=== PATIENT | female | born 1965 | race Caucasian/White ===

== ENCOUNTER 2018-07-26 08:47 | Emergency (ER) | payer MEDICAID, OTHER ==
[~2018-07-26] VITALS: Ht 170.2 cm; Wt 58.1 kg
[2018-07-26] MEDS ORDERED: ONDANSETRON 4 MG (ZOFRAN) ORAL DISSOLVE TAB ONE (09:22)
--- NOTE | 2018-07-26 09:22 | ED Abdominal Pain ---
General Stated Complaint: ABD PAIN Source of Information: Patient History of Present Illness Date Seen by Provider: Jul 26, 2018 Time Seen by Provider: 09:19 Initial Comments Patient is a 53-year-old female with history of insulin-dependent diabetes, chronic substance abuse and mental illness who presents with lower abdominal pain, cramping with watery diarrhea. Symptoms started 3-4 days ago and have gradually improved. Patient was seen by her PCP yesterday and prescribed antibiotics and nausea medication. Unfortunately, patient was unable to fill these. Patient reports nausea but is able to tolerate fluids and is drinking water. No fever or chills, vomiting or sweats. No chest pain palpitations, shortness of breath. No bloody stools or tarry stools. No history of GI bleed no other acute symptoms or complaints. Timing/Duration: 3-4 Days Severity/Quality: Mild Location: Suprapubic Radiation: No Radiation Activities at Onset: None Allergies and Home Medications Allergies Coded Allergies: tetracycline (Unverified Adverse Reaction, Mild, hives, 07/26/18) Uncoded Allergies: PENICILLIN (Adverse Reaction, Severe, Convulsions, 07/26/18) ERYTHROMYCIN (Adverse Reaction, Mild, hives, 07/26/18) Patient Home Medication List Home Medication List Reviewed: Yes Review of Systems Review of Systems Constitutional: no symptoms reported, see HPI; No dizziness, No fever, No malaise EENTM: No Symptoms Reported, See HPI Respiratory: No Symptoms Reported, See HPI Cardiovascular: No Symptoms Reported, See HPI Gastrointestinal: See HPI; Denies Abdomen Distended; Abdominal Pain; Denies Blood Streaked Stools; Diarrhea, Nausea Genitourinary: No Symptoms Reported Musculoskeletal: no symptoms reported Skin: other (early soft tissue abscess last) Past Lwvaorn-Agfbcz-Dwfcoy Hx Past Med/Social Hx: Reviewed Nursing Past Med/Soc Hx Patient Social History Alcohol Use: Denies Use Physical Exam Vital Signs Capillary Refill : Height/Weight/BMI Height: '" Weight: lbs. oz. 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 Patient does not appear to be in any distress and is drinking water. Patient given nausea medication. Blood sugar checked and is normal. Will obtain UA. Patient previously prescribed antibiotic and nausea medication yesterday. Recommend going previously prescribed per her prescriptions after leaving the emergency department with PCP follow-up. Impression Primary Impression: Nausea alone Additional Impression: Diarrhea Disposition: 01 HOME, SELF-CARE Condition: Improved Departure-Patient Inst. Referrals: ROSALIA MULLEN APRN (PCP) Primary Care Physician FREDDY ALCAZAR MD (Family) Primary Care Physician Patient Instructions: Diarrhea in Adolescents and Adults, Nausea and Vomiting, Adult Add. Discharge Instructions: Please fill antibiotics and nausea medication prescriptions after leaving the emergency department. Take Tylenol and Pepto-Bismol as needed for lower abdominal pain. Drink clear liquids only then gradually increase to bland diet as tolerated. Resume all her home medications. Follow-up with your PCP in 3-5 days for reevaluation if symptoms persist. Return to the ED if new or worsening symptoms. TRACIE LAN DO Jul 26, 2018 09:22
[2018-07-26] MEDS ORDERED: ONDANSETRON 4 MG (ZOFRAN) ORAL DISSOLVE TAB PO STA (09:23)
[2018-07-26] MEDS ORDERED: Klonopin (09:48)
[2018-07-26] MEDS ORDERED: Cogentin (09:48)
[2018-07-26] MEDS ORDERED: REXULTI (09:48)
[2018-07-26] MEDS ORDERED: Levemir (09:48)
[2018-07-26] MEDS ORDERED: Humalog (09:48)
[2018-07-26 10:01] LABS: BILIRUBIN,URINE NEGATIVE (NEGATIVE); CLARITY,URINE CLEAR; COLOR,URINE YELLOW; GLUCOSE, URINE (UA) NEGATIVE (NEGATIVE); KETONES,URINE NEGATIVE (NEGATIVE); NITRITE,URINE NEGATIVE (NEGATIVE); PROTEIN,URINE NEGATIVE (NEGATIVE); UROBILINOGEN,URINE 0.2 MG/DL (NORMAL)
[2018-07-26 10:02] LABS: BACTERIA,URINE NEGATIVE /HPF; LEUKOCYTE ESTERASE ,URINE NEGATIVE (NEGATIVE); RBC,URINE 0-2 /HPF; WBC,URINE 0-2 /HPF
[2018-07-26 10:04] VITALS: BP 112/55
== END 2018-07-26 10:04 | disposition home or self-care (01) ==
LOC: EDUNIT# 08:47 → ER FS 08:49
DX: R11.0 Nausea (principal); R19.7 Diarrhea, unspecified; E11.9 Type 2 diabetes mellitus without complications; Z88.1 Allergy status to other antibiotic agents; Z88.0 Allergy status to penicillin; Z91.041 Radiographic dye allergy status
CPT/HCPCS: 81000; 82962; 99283

== ENCOUNTER 2018-07-27 21:10 | Emergency (ER) | payer MEDICARE, MEDICAID ==
[~2018-07-27] VITALS: Ht 170.2 cm; Wt 58.1 kg
[~2018-07-27 21:10] MED LIST: Cogentin; Humalog; Klonopin; Levemir; REXULTI
--- NOTE | 2018-07-27 21:27 | NUR ---
PT. HAS A RED WARM AREA ON HER RIGHT AC. PT. STATED SHE DOES IV DRUGS BUT DENIED USING DRUGS RECENTLY AND STATED SHE DID NOT USE THAT SITE.
[2018-07-27] MEDS ORDERED: NS IV 1000 ML 1,000 ML IV SCH (21:45)
[2018-07-27 22:10] LABS: BASOPHILS % (AUTO) 0 % (0-10); EOSINOPHILS % (AUTO) 0 % (0-10); HEMATOCRIT 35 % (35-52); HEMOGLOBIN 12.1 G/DL (11.5-16.0); LYMPHOCYTES % (AUTO) 5 % (12-44); MEAN CORPUSCULAR HEMOGLOBIN 31 PG (25-34); MEAN CORPUSCULAR HGB CONC 35 G/DL (32-36); MEAN CORPUSCULAR VOLUME 88 FL (80-99); MEAN PLATELET VOLUME 10.2 FL (7.4-10.4); MONOCYTES % (AUTO) 12 % (0-12); NEUTROPHILS % (AUTO) 82 % (42-75); PLATELET COUNT 234 10^3/uL (130-400); RED CELL DISTRIBUTION WIDTH 11.9 % (10.0-14.5); WHITE BLOOD COUNT 15.6 10^3/uL (4.3-11.0)
[2018-07-27 22:11] LABS: EOSINOPHILS # (AUTO) 0.1 10^3/uL (0.0-0.3); LYMPHOCYTES # (AUTO) 0.8 X 10^3 (1.0-4.0); MONOCYTES # (AUTO) 1.8 X 10^3 (0.0-1.0); NEUTROPHILS # (AUTO) 12.7 X 10^3 (1.8-7.8)
[2018-07-27 22:12] LABS: BILIRUBIN,URINE NEGATIVE (NEGATIVE); CLARITY,URINE CLEAR; COLOR,URINE YELLOW; GLUCOSE, URINE (UA) NEGATIVE (NEGATIVE); KETONES,URINE NEGATIVE (NEGATIVE); LEUKOCYTE ESTERASE ,URINE NEGATIVE (NEGATIVE); NITRITE,URINE NEGATIVE (NEGATIVE); PROTEIN,URINE NEGATIVE (NEGATIVE); UROBILINOGEN,URINE 0.2 MG/DL (NORMAL)
--- NOTE | 2018-07-27 22:12 | ED General ---
General Chief Complaint: Abdominal/GI Problems Stated Complaint: NAUSEA,VOMITING Nursing Triage Note: Pt. reported that she was seen in urgent care 2 days ago and the ER yesterday with the same complaint of diarrhea. She was brought into the ER by EMS and placed in room 6. She has an IV in the left foot with an 18 gauge with NS wide open. Pt. reported she is dehydrated. Nursing Sepsis Screen: No Definite Risk Source of Information: Patient History of Present Illness Date Seen by Provider: Jul 27, 2018 Time Seen by Provider: 22:12 Initial Comments 53-year-old female presenting with complaints of diarrhea and feeling that she was dehydrated. She reports that she had been seen in the urgent care and ER within the last 2 days. She felt that she was getting worse instead of better. She also has swollen red areas on both arms from injecting methamphetamines. She has not been on any antibiotics for this infected areas. She has been having chills at home. She also has been having dry mouth. She states that she is not having any nausea or vomiting and has been drinking water just fine. However with the diarrhea she feels like she is not been able to keep up with the amount of water that she needs to. Allergies and Home Medications Allergies Coded Allergies: tetracycline (Unverified Adverse Reaction, Mild, hives, 07/26/18) Uncoded Allergies: PENICILLIN (Adverse Reaction, Severe, Convulsions, 07/26/18) ERYTHROMYCIN (Adverse Reaction, Mild, hives, 07/26/18) Home Medications Sulfamethoxazole/Trimethoprim 1 Each Tablet, 1 EACH PO BID Prescribed by: JESSENIA TSE on 07/28/18 0007 Patient Home Medication List Home Medication List Reviewed: Yes Review of Systems Review of Systems Constitutional: chills, fever, malaise, weakness EENTM: no symptoms reported Respiratory: no symptoms reported Cardiovascular: no symptoms reported Gastrointestinal: No constipation; diarrhea; No nausea, No vomiting Genitourinary: no symptoms reported Musculoskeletal: no symptoms reported Skin: lesions (redness and swelling to the left wrist and right elbow were she has injected methamphetamines and has an infection.); No rash Past Pxqfegs-Ovohhk-Gatmfh Hx Past Med/Social Hx: Reviewed Nursing Past Med/Soc Hx Patient Social History Drug of Choice: Methamphetamines Type Used: Cigarettes Recent Foreign Travel: No Contact w/Someone Who Travel: No Recent Infectious Disease Expo: No Physical Abuse: No Sexual Abuse: No Mistreated: No Fear: No Physical Exam Vital Signs Vital Signs - First Documented 07/27/18 21:21 Temp 97.2 Pulse 104 Resp 17 B/P (MAP) 118/56 (76) Pulse Ox 96 O2 Delivery Room Air Capillary Refill : Less Than 3 Seconds Height, Weight, BMI Height: 5'7.00" Weight: 128lbs. oz. 58.040123zz; BMI Method:Stated General Appearance: Moderate Distress, Thin HEENT: No Pharyngeal Erythema, No Tonsillar Exudate; Other (dry mucous membranes) Neck: Non Tender, Supple Respiratory: Chest Non Tender, Lungs Clear, Normal Breath Sounds, No Accessory Muscle Use, No Respiratory Distress Cardiovascular: Regular Rate, Rhythm, No Edema, Normal Peripheral Pulses Gastrointestinal: Normal Bowel Sounds, No Organomegaly, No Pulsatile Mass, Non Tender, Soft Extremity: Normal Capillary Refill, Normal Range of Motion, No Calf Tenderness , Inflammation (left wrist and right elbow where she has been duration and infection from injecting methamphetamines) Neurologic/Psychiatric: Alert, Oriented x3, No Motor/Sensory Deficits Skin: Warm/Dry, Erythema (left wrist and right elbow where she has injected methamphetamines and caused a cellulitis) Focused Exam Lactate Level 07/27/18 21:50: Lactic Acid Level 1.28 Lactic Acid Level Progress/Results/Core Measures Suspected Sepsis Recent Fever Within 48 Hours: No Infection Criteria Present: None New/Unexplained Altered Menta: No Sepsis Screen: No Definite Risk SIRS Temperature:97.2 Pulse: 104 Respiratory Rate: 17 Laboratory Tests 07/27/18 21:50: White Blood Count 15.6H Blood Pressure 118 /56 Mean: 76 07/27/18 21:50: Lactic Acid Level 1.28 Laboratory Tests 07/27/18 21:50: Creatinine 0.75, Platelet Count 234, Total Bilirubin 0.3 Results/Orders Lab Results Laboratory Tests Test 07/27/18 21:50 Range/Units White Blood Count 15.6 H 4.3-11.0 10^3/uL Red Blood Count 3.94 L 4.35-5.85 10^6/uL Hemoglobin 12.1 11.5-16.0 G/DL Hematocrit 35 35-52 % Mean Corpuscular Volume 88 80-99 FL Mean Corpuscular Hemoglobin 31 25-34 PG Mean Corpuscular Hemoglobin Concent 35 32-36 G/DL Red Cell Distribution Width 11.9 10.0-14.5 % Platelet Count 234 130-400 10^3/uL Mean Platelet Volume 10.2 7.4-10.4 FL Neutrophils (%) (Auto) 82 H 42-75 % Lymphocytes (%) (Auto) 5 L 12-44 % Monocytes (%) (Auto) 12 0-12 % Eosinophils (%) (Auto) 0 0-10 % Basophils (%) (Auto) 0 0-10 % Neutrophils # (Auto) 12.7 H 1.8-7.8 X 10^3 Lymphocytes # (Auto) 0.8 L 1.0-4.0 X 10^3 Monocytes # (Auto) 1.8 H 0.0-1.0 X 10^3 Eosinophils # (Auto) 0.1 0.0-0.3 10^3/uL Basophils # (Auto) 0.0 0.0-0.1 10^3/uL Neutrophils % (Manual) 47 % Lymphocytes % (Manual) 5 % Monocytes % (Manual) 6 % Eosinophils % (Manual) 0 % Basophils % (Manual) 0 % Metamyelocytes % 1 % Band Neutrophils 41 % Urine Color YELLOW Urine Clarity CLEAR Urine pH 6.0 5-9 Urine Specific [place] <=1.005 1.016-1.022 Urine Protein NEGATIVE NEGATIVE Urine Glucose (UA) NEGATIVE NEGATIVE Urine Ketones NEGATIVE NEGATIVE Urine Nitrite NEGATIVE NEGATIVE Urine Bilirubin NEGATIVE NEGATIVE Urine Urobilinogen 0.2 NORMAL MG/DL Urine Leukocyte Esterase NEGATIVE NEGATIVE Urine RBC (Auto) NEGATIVE NEGATIVE Urine RBC NONE /HPF Urine WBC 0-2 /HPF Urine Squamous Epithelial Cells 2-5 /HPF Urine Crystals NONE /LPF Urine Bacteria TRACE /HPF Urine Casts NONE /LPF Urine Mucus NONE /LPF Urine Culture Indicated NO Sodium Level 134 L 135-145 MMOL/L Potassium Level 3.0 L 3.6-5.0 MMOL/L Chloride Level 100 98-107 MMOL/L Carbon Dioxide Level 16 L 21-32 MMOL/L Anion Gap 18 H 5-14 MMOL/L Blood Urea Nitrogen 17 7-18 MG/DL Creatinine 0.75 0.60-1.30 MG/DL Estimat Glomerular Filtration Rate > 60 BUN/Creatinine Ratio 23 Glucose Level 126 H 70-105 MG/DL Lactic Acid Level 1.28 0.50-2.00 MMOL/L Calcium Level 8.3 L 8.5-10.1 MG/DL Corrected Calcium 9.0 8.5-10.1 MG/DL Total Bilirubin 0.3 0.1-1.0 MG/DL Aspartate Amino Transf (AST/SGOT) 10 5-34 U/L Alanine Aminotransferase (ALT/SGPT) 9 0-55 U/L Alkaline Phosphatase 99 40-136 U/L Total Protein 6.2 L 6.4-8.2 GM/DL Albumin 3.1 L 3.2-4.5 GM/DL Urine Opiates Screen NEGATIVE NEGATIVE Urine Oxycodone Screen NEGATIVE NEGATIVE Urine Methadone Screen NEGATIVE NEGATIVE Urine Propoxyphene Screen NEGATIVE NEGATIVE Urine Barbiturates Screen NEGATIVE NEGATIVE Ur Tricyclic Antidepressants Screen NEGATIVE NEGATIVE Urine Phencyclidine Screen NEGATIVE NEGATIVE Urine Amphetamines Screen POSITIVE H NEGATIVE Urine Methamphetamines Screen POSITIVE H NEGATIVE Urine Benzodiazepines Screen NEGATIVE NEGATIVE Urine Cocaine Screen NEGATIVE NEGATIVE Urine Cannabinoids Screen NEGATIVE NEGATIVE My Orders Orders - JESSENIA TSE MD Cbc With Automated Diff (07/27/18 21:31) Comprehensive Metabolic Panel (07/27/18 21:31) Blood Culture (07/27/18 21:31) Ua Culture If Indicated (07/27/18 21:31) Ed Iv/Invasive Line Start (07/27/18 21:31) Drug Screen Stat (Urine) (07/27/18 21:31) Lactic Acid Analyzer (07/27/18 21:31) Ns Iv 1000 Ml (Sodium Chloride 0.9%) (07/27/18 21:45) Manual Differential (07/27/18 21:50) Sulfamethoxazole/Trimet Ds Tab (Bactrim (07/28/18 00:00) Medications Given in ED Current Medications Medications Dose Ordered Sig/Daniel Route Start Time Stop Time Status Last Admin Dose Admin Trimethoprim/ Sulfamethoxazole 1 ea ONCE ONCE PO 07/28/18 00:00 07/28/18 00:01 DC 07/28/18 00:11 1 EA Vital Signs/I&O 07/27/18 07/28/18 21:21 00:13 Temp 97.2 97.2 Pulse 104 104 Resp 17 17 B/P (MAP) 118/56 (76) 118/56 (76) Pulse Ox 96 96 O2 Delivery Room Air 07/28/18 00:00 Intake Total 500 ml Balance 500 ml Capillary Refill : Less Than 3 Seconds Blood Pressure Mean: 76 Progress Note #1: Progress Note Will check labs and give IV fluids for hydration. Progress Note #2: Progress Note She has an elevated white blood cell count but her lactic acid is normal. Her urine is clear and has a normal specific gravity. Her symptoms are improved with hydration here in the ED. The patient states that she is feeling better and is anxious to go home. We will start her on Bactrim since she does have an antibiotic to help try and treat the any infections from injecting methamphetamines. Encouraged follow-up with the clinic in recheck to ensure that she is improving. Departure Impression Primary Impression: Cellulitis of right arm Additional Impressions: Cellulitis of left arm Diarrhea Qualified Codes: R19.7 - Diarrhea, unspecified Dehydration Methamphetamine addiction Disposition: HOME, SELF-CARE Condition: Stable Departure-Patient Inst. Decision time for Depature: 00:04 Referrals: ROSALIA MULLEN APRN (PCP) Primary Care Physician FREDDY ALCAZAR MD (Family) Primary Care Physician Patient Instructions: Cellulitis (Skin Infection), Adult (DC), Dehydration, Adult (DC), Diarrhea in Adolescents and Adults, Drug Abuse and Drug Addiction ( DC) Add. Discharge Instructions: Take the antibiotics until gone. If your are not seeing improvement in 2-3 days then return or follow up with clinic so they can recheck you. You may need IV antibiotics in the hospital or surgery to perform a procedure on the infection to see if there is an abscess to drain. All discharge instructions reviewed with patient and/or family. Voiced understanding. Scripts Sulfamethoxazole/Trimethoprim (Bactrim Ds Tablet) 1 Each Tablet 1 EACH PO BID for cellulitis for 10 Days, #20 TAB 0 Refills Prov: JESSENIA TSE MD 07/28/18 JESSENIA TSE MD Jul 27, 2018 22:12
[2018-07-27 22:13] LABS: BACTERIA,URINE TRACE /HPF; WBC,URINE 0-2 /HPF
[2018-07-27 22:19] LABS: AMPHETAMINE SCREEN, URINE POSITIVE (NEGATIVE); BARBITURATE SCREEN URINE NEGATIVE (NEGATIVE); BENZODIAZEPINES SCREEN URINE NEGATIVE (NEGATIVE); CANNABINOID SCREEN, URINE NEGATIVE (NEGATIVE); COCAINE SCREEN URINE NEGATIVE (NEGATIVE); METHADONE STAT NEGATIVE (NEGATIVE); METHAMPHETAMINE SCREEN URINE S POSITIVE (NEGATIVE); OPIATE SCREEN URINE NEGATIVE (NEGATIVE); OXYCODONE STAT NEGATIVE (NEGATIVE); PROPOXYPHENE STAT NEGATIVE (NEGATIVE); TRICYCLIC ANTIDEPRESSANTS SCRE NEGATIVE (NEGATIVE)
--- NOTE | 2018-07-27 22:19 | NUR ---
doctor Matthew in to see the patient.
--- NOTE | 2018-07-27 22:25 | NUR ---
pt. has been up to the bathroom to void 2 times since she arrived.
--- NOTE | 2018-07-27 22:27 | NUR ---
pt. refused to have the 2nd blood culture done.
[2018-07-27 22:29] LABS: ALKALINE PHOSPHATASE 99 U/L (40-136); BILIRUBIN,TOTAL 0.3 MG/DL (0.1-1.0); BUN/CREATININE RATIO 23; CALCIUM 8.3 MG/DL (8.5-10.1); CARBON DIOXIDE 16 MMOL/L (21-32); CHLORIDE 100 MMOL/L (98-107); CREATININE SERUM 0.75 MG/DL (0.60-1.30); GFR ESTIMATED > 60; GLUCOSE 126 MG/DL (70-105); SODIUM 134 MMOL/L (135-145)
[2018-07-27 22:30] LABS: ALANINE AMINOTRANSFERASE 9 U/L (0-55); ALBUMIN 3.1 GM/DL (3.2-4.5); TOTAL PROTEIN 6.2 GM/DL (6.4-8.2)
[2018-07-27 22:37] LABS: BAND NEUTROPHILS 41 %; BASOPHILS % (MANUAL) 0 %; EOSINOPHILS % (MANUAL) 0 %; LYMPHOCYTES % (MANUAL) 5 %; METAMYELOCYTES % 1 %; MONOCYTES % (MANUAL) 6 %; NEUTROPHILS % (MANUAL) 47 %
[2018-07-28] MEDS ORDERED: TRIM/SULFAMETH 160/800 (SEPTRA DS) TAB PO ONE
[2018-07-28] MEDS ORDERED: SULF1TAB35 PO (00:07)
[2018-07-28 00:13] VITALS: BP 118/56
== END 2018-07-28 00:11 | disposition home or self-care (01) ==
LOC: EDUNIT# 21:10 → ER FS 21:11
DX: L03.113 Cellulitis of right upper limb (principal); L03.114 Cellulitis of left upper limb; R19.7 Diarrhea, unspecified; E86.0 Dehydration; F15.10 Other stimulant abuse, uncomplicated; Z88.1 Allergy status to other antibiotic agents; Z88.0 Allergy status to penicillin; Z91.041 Radiographic dye allergy status
CPT/HCPCS: 36415; 80053; 80306; 81000; 83605; 85007; 85027; 87040

== ENCOUNTER 2019-04-28 09:16 | Emergency (ER) | payer MEDICARE, MEDICAID ==
[~2019-04-28] VITALS: Ht 167.7 cm; Wt 59.9 kg
[~2019-04-28 09:16] MED LIST changes: +SULF1TAB35 PO
--- NOTE | 2019-04-28 09:30 | ED Dyspnea ---
General Stated Complaint: SOB Source of Information: Patient, EMS Exam Limitations: No Limitations History of Present Illness Date Seen by Provider: Apr 28, 2019 Time Seen by Provider: 09:27 Initial Comments Shortness of air for a few days, denies CP or significant cough. Denies fever or chills. Overall, states she feels tired. Admits to smoking cigarettes and Meth. Hx of COPD, "out of her inhalers" Severity: Mild Activities at Onset: None Allergies and Home Medications Allergies Coded Allergies: tetracycline (Unverified Adverse Reaction, Mild, hives, 07/26/18) Uncoded Allergies: PENICILLIN (Adverse Reaction, Severe, Convulsions, 07/26/18) ERYTHROMYCIN (Adverse Reaction, Mild, hives, 07/26/18) Home Medications Albuterol Sulfate 1 Puff Puff, 2 PUFF IH Q4H PRN for cough 1 PUFF = 90 MCG Prescribed by: DAMIR MOSS on 04/28/19 1014 Prednisone 50 Mg Tab, 50 MG PO DAILY Prescribed by: DAMIR MOSS on 04/28/19 1014 Patient Home Medication List Home Medication List Reviewed: Yes Review of Systems Review of Systems Constitutional: see HPI; No chills, No diaphoresis, No dizziness, No fever; malaise, weakness EENTM: No ear discharge, No ear pain, No hoarseness, No nose congestion Respiratory: see HPI; No cough; dyspnea on exertion, short of breath; No wheezing Cardiovascular: see HPI; No chest pain, No edema, No palpitations Gastrointestinal: No abdominal pain; loss of appetite; No nausea, No vomiting Musculoskeletal: see HPI; No back pain, No neck pain Past Vokhewn-Uztolv-Qnxebn Hx Past Med/Social Hx: Reviewed Nursing Past Med/Soc Hx Patient Social History Recreational Drug Use: Yes (meth) Drug of Choice: Methamphetamines Smoking Status: Current Everyday Smoker Type Used: Cigarettes Recent Foreign Travel: Yes Physical Exam Vital Signs Vital Signs - First Documented 04/28/19 09:23 Temp 36.1 Pulse 69 Resp 16 B/P (MAP) 125/54 (77) Pulse Ox 100 O2 Delivery Room Air Capillary Refill : Height, Weight, BMI Height: 5'7.00" Weight: 128lbs. oz. 58.337640ql; BMI Method:Stated General Appearance: No Apparent Distress, WD/WN HEENT: PERRL/EOMI, TMs Normal, Normal ENT Inspection, Pharynx Normal Neck: Full Range of Motion, Normal Inspection, Non Tender, Supple Respiratory: Chest Non Tender, Lungs Clear, Normal Breath Sounds, No Accessory Muscle Use, No Respiratory Distress Cardiovascular: Regular Rate, Rhythm, No Edema, No JVD Gastrointestinal: Normal Bowel Sounds, Non Tender, Soft; No Distended, No Guarding Extremity: Normal Capillary Refill, Normal Inspection, Non Tender, No Calf Tenderness Neurologic/Psychiatric: Alert, Oriented x3, No Motor/Sensory Deficits, Normal Mood/Affect Progress/Results/Core Measures Results/Orders Lab Results Laboratory Tests Test 04/28/19 09:38 Range/Units White Blood Count 6.7 4.3-11.0 10^3/uL Red Blood Count 4.83 4.35-5.85 10^6/uL Hemoglobin 15.1 11.5-16.0 G/DL Hematocrit 46 35-52 % Mean Corpuscular Volume 94 80-99 FL Mean Corpuscular Hemoglobin 31 25-34 PG Mean Corpuscular Hemoglobin Concent 33 32-36 G/DL Red Cell Distribution Width 12.2 10.0-14.5 % Platelet Count 216 130-400 10^3/uL Mean Platelet Volume 10.6 H 7.4-10.4 FL Neutrophils (%) (Auto) 58 42-75 % Lymphocytes (%) (Auto) 32 12-44 % Monocytes (%) (Auto) 7 0-12 % Eosinophils (%) (Auto) 2 0-10 % Basophils (%) (Auto) 0 0-10 % Neutrophils # (Auto) 3.9 1.8-7.8 X 10^3 Lymphocytes # (Auto) 2.2 1.0-4.0 X 10^3 Monocytes # (Auto) 0.5 0.0-1.0 X 10^3 Eosinophils # (Auto) 0.1 0.0-0.3 10^3/uL Basophils # (Auto) 0.0 0.0-0.1 10^3/uL Sodium Level 140 135-145 MMOL/L Potassium Level 3.8 3.6-5.0 MMOL/L Chloride Level 105 98-107 MMOL/L Carbon Dioxide Level 25 21-32 MMOL/L Anion Gap 10 5-14 MMOL/L Blood Urea Nitrogen 23 H 7-18 MG/DL Creatinine 0.73 0.60-1.30 MG/DL Estimat Glomerular Filtration Rate > 60 BUN/Creatinine Ratio 32 Glucose Level 186 H 70-105 MG/DL Calcium Level 9.4 8.5-10.1 MG/DL Corrected Calcium 9.3 8.5-10.1 MG/DL Total Bilirubin 1.0 0.1-1.0 MG/DL Aspartate Amino Transf (AST/SGOT) 19 5-34 U/L Alanine Aminotransferase (ALT/SGPT) 13 0-55 U/L Alkaline Phosphatase 78 40-136 U/L Troponin I < 0.30 <0.30 NG/ML Total Protein 6.7 6.4-8.2 GM/DL Albumin 4.1 3.2-4.5 GM/DL My Orders Orders - ROVENSTINEDAMIR DO Ed Iv/Invasive Line Start (04/28/19 09:30) Cbc With Automated Diff (04/28/19 09:30) Comprehensive Metabolic Panel (04/28/19 09:30) Influenza A And B Antigens (04/28/19 09:30) Troponin I Fs (04/28/19 09:30) Ekg Tracing (04/28/19 09:30) Chest 1 View Ap/Pa Only (04/28/19 09:30) Prednisone Tablet (Deltasone Tablet) (04/28/19 10:00) Albuterol/Ipra Inhalation Soln (Duoneb I (04/28/19 09:58) Albuterol/Ipra Inhalation Soln (Duoneb I (04/28/19 10:15) Svn Small Volume Nebulizer (04/28/19 10:12) Medications Given in ED Current Medications Medications Dose Ordered Sig/Daniel Route Start Time Stop Time Status Last Admin Dose Admin Albuterol/ Ipratropium 3 ml ONCE ONCE INH 04/28/19 10:15 04/28/19 10:16 DC 04/28/19 10:16 3 ML Prednisone 40 mg ONCE ONCE PO 04/28/19 10:00 04/28/19 10:01 DC 04/28/19 10:06 40 MG Vital Signs/I&O 04/28/19 09:23 Temp 36.1 Pulse 69 Resp 16 B/P (MAP) 125/54 (77) Pulse Ox 100 O2 Delivery Room Air Progress Progress Note : Time: 10:11 Progress Note Patient re-evaluated p her Duoneb treatment. Feeling better and her breathing has normalized. Lung auscultation is clear and unlabored. Discussed normal labs and CXR, Rx's sent to pharmacy of her choice. Advised to f/u w her PCP in 1 week, sooner if not improving and to come back or go to the nearest ER should she have a progression of her SOA or associated fever or chest pain. Patient has no further questions at this time and was open to discussion of stopping smoking cigarettes and meth. She is aware of community resources to assist. Initial ECG Impression Date: Apr 28, 2019 Initial ECG Impression Time: 09:42 Initial ECG Rate: 73 Initial ECG Rhythm: Normal Sinus Initial ECG Intervals: Normal Initial ECG Comparisson: No Previous ECG Available Comment Early repol. pattern. normal axis Counseling-Symptomatic: 3-10 Minutes Departure Impression Primary Impression: COPD exacerbation Disposition: 01 HOME, SELF-CARE Condition: Improved Departure-Patient Inst. Decision time for Depature: 10:13 Referrals: ROSALIA MULLEN APRN (PCP) Primary Care Physician FREDDY ALCAZAR MD (Family) Primary Care Physician Patient Instructions: Chronic Obstructive Pulmonary Disease (COPD), Including Emphysema Scripts Prednisone (Prednisone) 50 Mg Tab 50 MG PO DAILY, #7 TAB Prov: DAMIR MOSS DO 04/28/19 Albuterol Sulfate (PROAIR HFA) 1 Puff Puff 2 PUFF IH Q4H PRN for cough, #1 PUFF 1 PUFF = 90 MCG Prov: DAMIR MOSS DO 04/28/19 DAMIR MOSS DO Apr 28, 2019 09:30
--- NOTE | 2019-04-28 09:35 | NUR ---
Flu swab attempt; patient swatting at staff and yelling "no,no". Reported refusal to Dr Bhardwaj.
[2019-04-28 09:44] LABS: HEMATOCRIT 46 % (35-52); HEMOGLOBIN 15.1 G/DL (11.5-16.0); MEAN CORPUSCULAR HEMOGLOBIN 31 PG (25-34); MEAN CORPUSCULAR HGB CONC 33 G/DL (32-36); MEAN CORPUSCULAR VOLUME 94 FL (80-99); MEAN PLATELET VOLUME 10.6 FL (7.4-10.4); PLATELET COUNT 216 10^3/uL (130-400); RED CELL DISTRIBUTION WIDTH 12.2 % (10.0-14.5); WHITE BLOOD COUNT 6.7 10^3/uL (4.3-11.0)
[2019-04-28 09:45] LABS: BASOPHILS % (AUTO) 0 % (0-10); EOSINOPHILS # (AUTO) 0.1 10^3/uL (0.0-0.3); EOSINOPHILS % (AUTO) 2 % (0-10); LYMPHOCYTES # (AUTO) 2.2 X 10^3 (1.0-4.0); LYMPHOCYTES % (AUTO) 32 % (12-44); MONOCYTES # (AUTO) 0.5 X 10^3 (0.0-1.0); MONOCYTES % (AUTO) 7 % (0-12); NEUTROPHILS # (AUTO) 3.9 X 10^3 (1.8-7.8); NEUTROPHILS % (AUTO) 58 % (42-75)
--- NOTE | 2019-04-28 09:48 | Diagnostic Imaging Report ---
INDICATION: Shortness of breath and dizziness. Time of exam: 9:41 AM No prior studies are available for comparison. The heart size is normal. The lungs show some hyperinflation suggestive of COPD. No infiltrates are seen. There is no effusion or pneumothorax. Kyphoplasty changes mid thoracic spine are noted. IMPRESSION: COPD. No acute feature is detected. Dictated by: Dictated on workstation # [id number]
[2019-04-28] MEDS ORDERED: RT-ALBUTEROL/IPRATROPIUM 3 ML (DUONEB) VIAL ONE (09:58)
[2019-04-28] MEDS ORDERED: predniSONE 20 MG TAB PO ONE (10:00)
[2019-04-28 10:04] LABS: ALANINE AMINOTRANSFERASE 13 U/L (0-55); ALKALINE PHOSPHATASE 78 U/L (40-136); BUN/CREATININE RATIO 32; CALCIUM 9.4 MG/DL (8.5-10.1); CARBON DIOXIDE 25 MMOL/L (21-32); CHLORIDE 105 MMOL/L (98-107); CREATININE SERUM 0.73 MG/DL (0.60-1.30); GFR ESTIMATED > 60; GLUCOSE 186 MG/DL (70-105); POTASSIUM 3.8 MMOL/L (3.6-5.0); SODIUM 140 MMOL/L (135-145); TOTAL PROTEIN 6.7 GM/DL (6.4-8.2)
[2019-04-28 10:05] LABS: ALBUMIN 4.1 GM/DL (3.2-4.5)
[2019-04-28] MEDS ORDERED: DULO60CA59 (10:07)
[2019-04-28] MEDS ORDERED: CLON0.1T (10:07)
[2019-04-28] MEDS ORDERED: QUET25TA73 (10:07)
[2019-04-28] MEDS ORDERED: BENZ1TAB6 (10:07)
[2019-04-28] MEDS ORDERED: PRD50T PO (10:14)
[2019-04-28] MEDS ORDERED: RT-ALBUINH IH (10:14)
[2019-04-28] MEDS ORDERED: RT-ALBUTEROL/IPRATROPIUM 3 ML (DUONEB) VIAL INH ONE (10:15)
[2019-04-28 10:32] VITALS: BP 118/80
== END 2019-04-28 10:32 | disposition home or self-care (01) ==
LOC: EDUNIT# 09:16 → ER FS 09:23
DX: J44.1 Chronic obstructive pulmonary disease with (acute) exacerbation (principal); F17.210 Nicotine dependence, cigarettes, uncomplicated; Z88.0 Allergy status to penicillin; Z88.1 Allergy status to other antibiotic agents
CPT/HCPCS: 36415; 71045; 80053; 84484; 85025; 93005; 94640

== ENCOUNTER 2020-06-20 18:05 | Emergency (ER) | payer MEDICARE, MEDICAID ==
[~2020-06-20] VITALS: Ht 170.1 cm; Wt 59.9 kg
[~2020-06-20 18:05] MED LIST changes: +BENZ1TAB6; +CLN.1T; +DULO60CA59; +PRD50T PO; +QUET25TA34; +RT-ALBUINH IH
--- NOTE | 2020-06-20 18:15 | ED General ---
General Stated Complaint: PALPITATIONS Source of Information: Patient History of Present Illness Date Seen by Provider: Jun 20, 2020 Time Seen by Provider: 18:13 Initial Comments 55-year-old female presents via EMS where she was brought from an urgent care clinic for initial concerns of "possible stroke" by whoever made the phone call. Patient states she was in her car and she started to feel shaky and her heart was palpating. She did have some shortness of air. On arrival, patient states she is feeling better and her symptoms have resolved. She admittedly is a regular meth user and last used 2 days ago. She otherwise is without complaint on arrival and feels back to normal. Allergies and Home Medications Allergies Coded Allergies: ciprofloxacin (Unverified Adverse Reaction, Mild, rash, 04/28/19) tetracycline (Unverified Adverse Reaction, Mild, hives, 07/26/18) Uncoded Allergies: PENICILLIN (Adverse Reaction, Severe, Convulsions, 07/26/18) ERYTHROMYCIN (Adverse Reaction, Mild, hives, 07/26/18) Home Medications Albuterol Sulfate 1 Puff Puff, 2 PUFF IH Q4H PRN for cough 1 PUFF = 90 MCG Prescribed by: DAMIR MOSS on 04/28/19 1014 Prednisone 50 Mg Tab, 50 MG PO DAILY Prescribed by: DAMIR MOSS on 04/28/19 1014 Patient Home Medication List Home Medication List Reviewed: Yes Review of Systems Review of Systems Constitutional: No dizziness, No fever, No malaise, No weakness EENTM: no symptoms reported Respiratory: see HPI; No cough; short of breath (during episode, resolved before ED arrival) Cardiovascular: No chest pain, No edema; palpitations (during episode, resolved before arrival) Gastrointestinal: No abdominal pain, No nausea, No vomiting Musculoskeletal: No back pain, No joint pain Skin: No change in color, No lesions, No lumps Psychiatric/Neurological: Denies Headache, Denies Numbness, Denies Paresthesia, Denies Seizure, Denies Tremors, Denies Weakness Past Obcswrz-Zpvcmm-Qlurjp Hx Past Med/Social Hx: Reviewed Nursing Past Med/Soc Hx Patient Social History Drug of Choice: Methamphetamines Type Used: Cigarettes 2nd Hand Smoke Exposure: Yes Recent Hopitalizations: No Immunizations Up To Date Tetanus Booster (TDap): Unknown Seasonal Allergies Seasonal Allergies: No Past Medical History Surgeries: Yes (Bladder suspension) Appendectomy, Gallbladder Respiratory: Yes COPD Cardiac: Yes ([place] 01/2011) Heart Attack Neurological: Yes Neuropathy Genitourinary: No Gastrointestinal: Yes (Hep C) Hepatitis Musculoskeletal: Yes (chronic R hip pain) Endocrine: Yes (DM Type II) Diabetes, Insulin dep HEENT: No Cancer: No Psychosocial: Yes (Hx paranoid schizophrenia) Anxiety, Schizophrenia, Depression Integumentary: No Blood Disorders: Yes (Polycythemia r/t smoking) Physical Exam Vital Signs Vital Signs - First Documented 06/20/20 18:05 Temp 36.9 Pulse 83 Resp 20 B/P (MAP) 176/96 (122) Pulse Ox 98 O2 Delivery Room Air Capillary Refill : Height, Weight, BMI Height: 5'7.00" Weight: 128lbs. oz. 58.003366da; 21.00 BMI Method:Stated General Appearance: No Apparent Distress, WD/WN Eyes: Bilateral Eye Normal Inspection, Bilateral Eye PERRL, Bilateral Eye EOMI HEENT: PERRL/EOMI, Normal ENT Inspection Neck: Non Tender, Supple Respiratory: Chest Non Tender, Lungs Clear Cardiovascular: Regular Rate, Rhythm, No Edema Gastrointestinal: Normal Bowel Sounds, Non Tender, Soft Back: Normal Inspection, No CVA Tenderness Extremity: Normal Capillary Refill, Non Tender Neurologic/Psychiatric: Alert, Oriented x3, No Motor/Sensory Deficits, Normal Mood/Affect Progress/Results/Core Measures Suspected Sepsis SIRS Temperature: Pulse: Respiratory Rate: Laboratory Tests 06/20/20 18:10: White Blood Count 8.4 Blood Pressure / Mean: Laboratory Tests 06/20/20 18:10: Platelet Count 223 Results/Orders Lab Results Laboratory Tests Test 06/20/20 18:10 Range/Units White Blood Count 8.4 4.3-11.0 10^3/uL Red Blood Count 4.34 L 4.35-5.85 10^6/uL Hemoglobin 13.5 11.5-16.0 G/DL Hematocrit 40 35-52 % Mean Corpuscular Volume 91 80-99 FL Mean Corpuscular Hemoglobin 31 25-34 PG Mean Corpuscular Hemoglobin Concent 34 32-36 G/DL Red Cell Distribution Width 11.9 10.0-14.5 % Platelet Count 223 130-400 10^3/uL Mean Platelet Volume 10.8 H 7.4-10.4 FL Immature Granulocyte % (Auto) 0 % Neutrophils (%) (Auto) 59 42-75 % Lymphocytes (%) (Auto) 26 12-44 % Monocytes (%) (Auto) 12 0-12 % Eosinophils (%) (Auto) 2 0-10 % Basophils (%) (Auto) 1 0-10 % Neutrophils # (Auto) 4.9 1.8-7.8 X 10^3 Lymphocytes # (Auto) 2.2 1.0-4.0 X 10^3 Monocytes # (Auto) 1.0 0.0-1.0 X 10^3 Eosinophils # (Auto) 0.2 0.0-0.3 10^3/uL Basophils # (Auto) 0.1 0.0-0.1 10^3/uL Immature Granulocyte # (Auto) 0.0 0.0-0.1 10^3/uL My Orders Orders - DAMIR MOSS DO Cbc With Automated Diff (06/20/20 18:14) Comprehensive Metabolic Panel (06/20/20 18:14) Urinalysis (06/20/20 18:14) Vital Signs/I&O 06/20/20 18:05 Temp 36.9 Pulse 83 Resp 20 B/P (MAP) 176/96 (122) Pulse Ox 98 O2 Delivery Room Air Capillary Refill : Departure Impression Primary Impression: Heart palpitations Disposition: 01 HOME, SELF-CARE Condition: Improved Departure-Patient Inst. Referrals: ROSALIA MULLNE APRN (PCP) Primary Care Physician FREDDY ALCAZAR MD (Family) Primary Care Physician Patient Instructions: Palpitations (DC) Add. Discharge Instructions: Follow up with your Primary care provider next week. DAMIR MOSS DO Jun 20, 2020 18:15
[2020-06-20 18:23] LABS: BASOPHILS % (AUTO) 1 % (0-10); EOSINOPHILS % (AUTO) 2 % (0-10); HEMATOCRIT 40 % (35-52); HEMOGLOBIN 13.5 G/DL (11.5-16.0); LYMPHOCYTES % (AUTO) 26 % (12-44); MEAN CORPUSCULAR HEMOGLOBIN 31 PG (25-34); MEAN CORPUSCULAR HGB CONC 34 G/DL (32-36); MEAN CORPUSCULAR VOLUME 91 FL (80-99); MEAN PLATELET VOLUME 10.8 FL (7.4-10.4); MONOCYTES % (AUTO) 12 % (0-12); NEUTROPHILS % (AUTO) 59 % (42-75); PLATELET COUNT 223 10^3/uL (130-400); WHITE BLOOD COUNT 8.4 10^3/uL (4.3-11.0)
[2020-06-20 18:24] LABS: BASOPHILS # (AUTO) 0.1 10^3/uL (0.0-0.1); EOSINOPHILS # (AUTO) 0.2 10^3/uL (0.0-0.3); LYMPHOCYTES # (AUTO) 2.2 X 10^3 (1.0-4.0); NEUTROPHILS # (AUTO) 4.9 X 10^3 (1.8-7.8)
[2020-06-20 18:44] LABS: ALANINE AMINOTRANSFERASE 11 U/L (0-55); ALBUMIN 4.2 GM/DL (3.2-4.5); ALKALINE PHOSPHATASE 87 U/L (40-136); BILIRUBIN,TOTAL 0.8 MG/DL (0.1-1.0); BUN/CREATININE RATIO 37; CALCIUM 8.9 MG/DL (8.5-10.1); CARBON DIOXIDE 23 MMOL/L (21-32); CHLORIDE 106 MMOL/L (98-107); CREATININE SERUM 0.78 MG/DL (0.60-1.30); GFR ESTIMATED > 60; GLUCOSE 109 MG/DL (70-105); POTASSIUM 4.1 MMOL/L (3.6-5.0); SODIUM 141 MMOL/L (135-145)
[2020-06-20 18:53] VITALS: BP 185/99
[2020-06-20 19:04] LABS: BACTERIA,URINE FEW /HPF; BILIRUBIN,URINE NEGATIVE (NEGATIVE); CLARITY,URINE CLEAR; COLOR,URINE YELLOW; GLUCOSE, URINE (UA) NEGATIVE (NEGATIVE); KETONES,URINE NEGATIVE (NEGATIVE); LEUKOCYTE ESTERASE ,URINE NEGATIVE (NEGATIVE); NITRITE,URINE NEGATIVE (NEGATIVE); PROTEIN,URINE NEGATIVE (NEGATIVE)
== END 2020-06-20 18:53 | disposition home or self-care (01) ==
LOC: EDUNIT# 18:05 → ER FS 18:06
DX: R00.2 Palpitations (principal); E11.40 Type 2 diabetes mellitus with diabetic neuropathy, unspecified; J44.9 Chronic obstructive pulmonary disease, unspecified; Z79.4 Long term (current) use of insulin; Z77.22 Contact with and (suspected) exposure to environmental tobacco smoke (acute) (chronic); Z79.52 Long term (current) use of systemic steroids; Z88.1 Allergy status to other antibiotic agents; Z88.0 Allergy status to penicillin
CPT/HCPCS: 36415; 80053; 81000; 85025; 87088; 99283

== ENCOUNTER 2020-08-05 12:12 | Emergency (ER) | payer MEDICARE, MEDICAID ==
[~2020-08-05] VITALS: Ht 165 cm; Wt 58.0 kg
--- NOTE | 2020-08-05 12:44 | ED Respiratory ---
General Chief Complaint: Respiratory Problems Stated Complaint: SOB; CHEST CONGESTION Nursing Triage Note: SHORTNESS OF BREATH OFF AND ON SINCE MARCH. PT REPORTS SHE QUIT USING METH 2 MONTHS AGO. SHE WAS SMOKING 5 CARTONS OF CIGARETTES aA MONTH BUT SHE STARTED SMOKING 2 CARTONS OF CIGARS A MONTH INSTEAD. Source: patient History of Present Illness Date Seen by Provider: Aug 05, 2020 Time Seen by Provider: 12:15 Initial Comments 55-year-old female presenting with worsening shortness of breath and cough. She states that she does have a history of using methamphetamines as well as cigarettes and cigars. She recently decreased from 5 cartons of cigarettes in a month to 2 cartons of cigars in a month. She felt like this was some improvement. She has been having increased congestion and allergy symptoms with the weather change recently. She was seen 3 days ago at urgent care and had a negative flu and Covid swab. She has had continued cough but no increased sputum production. She has chest wall pain from coughing so much. She denies any fever but has had some chills. She has been using albuterol both through an inhaler and with the nebulizer. She has an appointment to see her regular provider, Rosalia Mullen, tomorrow but felt that she needed a chest x-ray and evaluation today so she came to the emergency department. Allergies and Home Medications Allergies Coded Allergies: ciprofloxacin (Unverified Adverse Reaction, Mild, rash, 04/28/19) tetracycline (Unverified Adverse Reaction, Mild, hives, 07/26/18) Uncoded Allergies: PENICILLIN (Adverse Reaction, Severe, Convulsions, 07/26/18) ERYTHROMYCIN (Adverse Reaction, Mild, hives, 07/26/18) Home Medications Albuterol Sulfate 1 Puff Puff, 2 PUFF IH Q4H PRN for cough 1 PUFF = 90 MCG Prescribed by: DAMIR MOSS on 04/28/19 1014 Prednisone 50 Mg Tab, 50 MG PO DAILY Prescribed by: DAMIR MURRAYSTAIMEE on 04/28/19 1014 Prednisone 20 Mg Tab, 20 MG PO DAILY Take 3 tabs(60mg)daily x 3 days,decrease by 1/2 tab(10mg)every other day. Prescribed by: JESSENIA TSE on 08/05/20 1357 Patient Home Medication List Home Medication List Reviewed: Yes Review of Systems Review of Systems Constitutional: chills; No diaphoresis, No fever EENTM: nose congestion; No epistaxis Respiratory: cough; No hemoptysis; short of breath; No stridor; wheezing Cardiovascular: chest pain (Chest wall pain more on the right side with coughing) Gastrointestinal: no symptoms reported Genitourinary: no symptoms reported Musculoskeletal: see HPI Skin: No rash Psychiatric/Neurological: Headache Hematologic/Lymphatic: No Symptoms Reported Immunological/Allergic: see HPI (Seasonal allergies) Past Cwhqmef-Qgiyht-Rybngz Hx Past Med/Social Hx: Reviewed Nursing Past Med/Soc Hx Patient Social History Alcohol Use: Denies Use Drug of Choice: Methamphetamines Smoking Status: Current Everyday Smoker Type Used: Cigars, Cigarettes 2nd Hand Smoke Exposure: Yes Recent Infectious Disease Expo: No Recent Hopitalizations: No Immunizations Up To Date Tetanus Booster (TDap): Unknown Seasonal Allergies Seasonal Allergies: No Past Medical History Surgeries: Yes (Bladder suspension) Appendectomy, Gallbladder Respiratory: Yes COPD Cardiac: Yes ([place] 01/2011) Heart Attack Neurological: Yes Neuropathy Genitourinary: No Gastrointestinal: Yes (Hep C) Hepatitis Musculoskeletal: Yes (chronic R hip pain) Endocrine: Yes (DM Type II) Diabetes, Insulin dep HEENT: No Cancer: No Psychosocial: Yes (Hx paranoid schizophrenia) Sleep Difficulties, Anxiety, PTSD, Schizophrenia, Depression Integumentary: No Blood Disorders: Yes (Polycythemia r/t smoking) Physical Exam Vital Signs - First Documented 08/05/20 12:25 Temp 36.9 Pulse 83 Resp 17 B/P (MAP) 148/70 (96) Pulse Ox 96 O2 Delivery Room Air Capillary Refill : Less Than 3 Seconds Height: 5'7.00" Weight: 128lbs. oz. 58.055687ua; 21.00 BMI Method:Stated General Appearance: WD/WN, mild distress HEENT: pharynx normal Neck: non-tender, supple Respiratory: lungs clear, no respiratory distress, decreased breath sounds, accessory muscle use, wheezing (Expiratory), other (Tenderness to the chest wall especially on the right side) Cardiovascular: normal peripheral pulses, regular rate, rhythm Gastrointestinal: normal bowel sounds, soft, no pulsatile mass Extremities: normal range of motion, no pedal edema, normal capillary refill Neurologic/Psychiatric: coagulating bath operator II-XII nml as tested, alert, oriented x 3 Skin: normal color, warm/dry Progress/Results/Core Measures Suspected Sepsis Recent Fever Within 48 Hours: No Infection Criteria Present: None New/Unexplained Altered Menta: No Sepsis Screen: No Definite Risk SIRS Temperature: Pulse: Respiratory Rate: Laboratory Tests 08/05/20 12:53: White Blood Count 9.6 Blood Pressure / Mean: Laboratory Tests 08/05/20 12:53: Creatinine 0.61, Platelet Count 287, Total Bilirubin 0.4 Results/Orders Lab Results Laboratory Tests Test 08/05/20 12:53 Range/Units White Blood Count 9.6 4.3-11.0 10^3/uL Red Blood Count 4.85 4.35-5.85 10^6/uL Hemoglobin 15.3 11.5-16.0 G/DL Hematocrit 46 35-52 % Mean Corpuscular Volume 94 80-99 FL Mean Corpuscular Hemoglobin 32 25-34 PG Mean Corpuscular Hemoglobin Concent 34 32-36 G/DL Red Cell Distribution Width 12.6 10.0-14.5 % Platelet Count 287 130-400 10^3/uL Mean Platelet Volume 10.6 H 7.4-10.4 FL Immature Granulocyte % (Auto) 0 % Neutrophils (%) (Auto) 61 42-75 % Lymphocytes (%) (Auto) 27 12-44 % Monocytes (%) (Auto) 9 0-12 % Eosinophils (%) (Auto) 2 0-10 % Basophils (%) (Auto) 0 0-10 % Neutrophils # (Auto) 5.9 1.8-7.8 X 10^3 Lymphocytes # (Auto) 2.6 1.0-4.0 X 10^3 Monocytes # (Auto) 0.8 0.0-1.0 X 10^3 Eosinophils # (Auto) 0.2 0.0-0.3 10^3/uL Basophils # (Auto) 0.0 0.0-0.1 10^3/uL Immature Granulocyte # (Auto) 0.0 0.0-0.1 10^3/uL Sodium Level 140 135-145 MMOL/L Potassium Level 4.1 3.6-5.0 MMOL/L Chloride Level 106 98-107 MMOL/L Carbon Dioxide Level 22 21-32 MMOL/L Anion Gap 12 5-14 MMOL/L Blood Urea Nitrogen 13 7-18 MG/DL Creatinine 0.61 0.60-1.30 MG/DL Estimat Glomerular Filtration Rate > 60 BUN/Creatinine Ratio 21 Glucose Level 118 H 70-105 MG/DL Calcium Level 9.5 8.5-10.1 MG/DL Corrected Calcium 9.5 8.5-10.1 MG/DL Total Bilirubin 0.4 0.1-1.0 MG/DL Aspartate Amino Transf (AST/SGOT) 12 5-34 U/L Alanine Aminotransferase (ALT/SGPT) 7 0-55 U/L Alkaline Phosphatase 108 40-136 U/L C-Reactive Protein < 0.30 <0.50 MG/DL Total Protein 6.9 6.4-8.2 GM/DL Albumin 4.0 3.2-4.5 GM/DL My Orders Orders - JESSENIA TSE MD Cbc With Automated Diff (08/05/20 12:42) Comprehensive Metabolic Panel (08/05/20 12:42) Chest 1 View Ap/Pa Only (08/05/20 12:42) Albuterol/Ipra Inhalation Soln (Duoneb I (08/05/20 12:45) O2 (08/05/20 12:42) Ed Iv/Invasive Line Start (08/05/20 12:42) Monitor-Rhythm Ecg Trace Only (08/05/20 12:42) Crp Fs (08/05/20 12:42) Svn Small Volume Nebulizer (08/05/20 12:42) Methylprednisolone Sod Succ (Solu-Medrol (08/05/20 12:57) Medications Given in ED Current Medications Medications Dose Ordered Sig/Daniel Route Start Time Stop Time Status Last Admin Dose Admin Albuterol/ Ipratropium 3 ml ONCE ONCE INH 08/05/20 12:45 08/05/20 12:46 DC 08/05/20 12:59 3 ML Vital Signs/I&O 08/05/20 08/05/20 12:25 14:01 Temp 36.9 36.9 Pulse 83 78 Resp 17 20 B/P (MAP) 148/70 (96) 125/76 Pulse Ox 96 98 O2 Delivery Room Air Room Air Capillary Refill : Less Than 3 Seconds Progress Note #1: Progress Note Obtain chest x-ray basic labs. Try DuoNeb breathing treatment along with Solu- Medrol IV. Differential diagnosis includes COPD exacerbation, pneumonia, seasonal allergies, tobacco abuse, Progress Note #2: Progress Note Chest x-ray does not show any acute infiltrate. Labs are stable. Patient resting and feeling better after breathing treatment and steroid. Will continue a steroid taper and since there is no pneumonia will defer on an antibiotic. Diagnostic Imaging Diagonstic Imaging: Xray Plain Films/CT/US/NM/MRI: chest Comments [facility]. [place], [place] NAME: TITA LOPEZ [facility] REC#: [id number] PT STATUS: REG ER : 1965 PHYSICIAN: JESSENIA TSE MD ADMIT DATE: 08/05/20/ER FS Draft Date of Exam:08/05/20 CHEST 1 VIEW AP/PA ONLY INDICATION: Shortness of breath and chest congestion. TIME OF EXAM: 12:38 PM. COMPARISON: 04/28/2019. FINDINGS: The heart size is normal. The pulmonary vascularity is unremarkable. The lungs are clear. No infiltrate, effusion, or pneumothorax is detected. IMPRESSION: No acute cardiopulmonary process is detected. Dictated on workstation # [id number] Dict: 08/05/20 1345 Trans: 08/05/20 1359 [id number] Interpreted by: TIM LAINEZ MD Electronically signed by: Departure Impression Primary Impression: COPD exacerbation Disposition: 01 HOME, SELF-CARE Condition: Stable Departure-Patient Inst. Decision time for Depature: 13:51 Referrals: ROSALIA MULLEN APRN (PCP) Primary Care Physician FREDDY ALCAZAR MD (Family) Primary Care Physician Patient Instructions: COPD Exacerbation, Adult ED, Cough, Adult (DC) Add. Discharge Instructions: Take the steroids to help with cough and shortness of breath. Continue with your breathing treatments and inhalers. Follow up with TERESO Mullen tomorrow as scheduled to see how you are doing and if needed get refills of your albuterol medicines. All discharge instructions reviewed with patient and/or family. Voiced understanding. Scripts Prednisone (Prednisone) 20 Mg Tab 20 MG PO DAILY for COPD exacerbation for 13 Days, #24 TAB Take 3 tabs(60mg)daily x 3 days,decrease by 1/2 tab(10mg)every other day. Prov: JESSENIA TSE MD 08/05/20 JESSENIA TSE MD Aug 05, 2020 12:43
[2020-08-05] MEDS ORDERED: RT-ALBUTEROL/IPRATROPIUM 3 ML (DUONEB) VIAL INH ONE (12:45)
[2020-08-05] MEDS ORDERED: methylPREDNISolone 125 MG (Solu-MEDROL) VIAL IVP STA (12:57)
[2020-08-05 13:03] LABS: HEMATOCRIT 46 % (35-52); HEMOGLOBIN 15.3 G/DL (11.5-16.0); MEAN CORPUSCULAR HEMOGLOBIN 32 PG (25-34); MEAN CORPUSCULAR HGB CONC 34 G/DL (32-36); MEAN CORPUSCULAR VOLUME 94 FL (80-99); MEAN PLATELET VOLUME 10.6 FL (7.4-10.4); PLATELET COUNT 287 10^3/uL (130-400); WHITE BLOOD COUNT 9.6 10^3/uL (4.3-11.0)
[2020-08-05 13:04] LABS: NEUTROPHILS % (AUTO) 61 % (42-75)
[2020-08-05 13:06] LABS: BASOPHILS % (AUTO) 0 % (0-10); EOSINOPHILS # (AUTO) 0.2 10^3/uL (0.0-0.3); EOSINOPHILS % (AUTO) 2 % (0-10); LYMPHOCYTES # (AUTO) 2.6 X 10^3 (1.0-4.0); LYMPHOCYTES % (AUTO) 27 % (12-44); MONOCYTES # (AUTO) 0.8 X 10^3 (0.0-1.0); MONOCYTES % (AUTO) 9 % (0-12); NEUTROPHILS # (AUTO) 5.9 X 10^3 (1.8-7.8)
[2020-08-05 13:29] LABS: BILIRUBIN,TOTAL 0.4 MG/DL (0.1-1.0); BUN/CREATININE RATIO 21; CALCIUM 9.5 MG/DL (8.5-10.1); CARBON DIOXIDE 22 MMOL/L (21-32); CHLORIDE 106 MMOL/L (98-107); CREATININE SERUM 0.61 MG/DL (0.60-1.30); GFR ESTIMATED > 60; GLUCOSE 118 MG/DL (70-105); POTASSIUM 4.1 MMOL/L (3.6-5.0); SODIUM 140 MMOL/L (135-145)
[2020-08-05 13:30] LABS: ALANINE AMINOTRANSFERASE 7 U/L (0-55); ALKALINE PHOSPHATASE 108 U/L (40-136); TOTAL PROTEIN 6.9 GM/DL (6.4-8.2)
[2020-08-05] MEDS ORDERED: PRD20T PO (13:57)
--- NOTE | 2020-08-05 13:59 | Diagnostic Imaging Report ---
INDICATION: Shortness of breath and chest congestion. TIME OF EXAM: 12:38 PM. COMPARISON: 04/28/2019. FINDINGS: The heart size is normal. The pulmonary vascularity is unremarkable. The lungs are clear. No infiltrate, effusion, or pneumothorax is detected. IMPRESSION: No acute cardiopulmonary process is detected. Dictated by: Dictated on workstation # [id number]
[2020-08-05 14:01] VITALS: BP 125/76
== END 2020-08-05 14:00 | disposition home or self-care (01) ==
LOC: EDUNIT# 12:12 → ER FS 12:14
DX: J44.1 Chronic obstructive pulmonary disease with (acute) exacerbation (principal); I25.2 Old myocardial infarction; E11.9 Type 2 diabetes mellitus without complications; F17.210 Nicotine dependence, cigarettes, uncomplicated; F17.290 Nicotine dependence, other tobacco product, uncomplicated; Z88.0 Allergy status to penicillin; Z88.1 Allergy status to other antibiotic agents; Z79.52 Long term (current) use of systemic steroids
CPT/HCPCS: 36415; 71045; 80053; 85025; 86141; 93041

== ENCOUNTER 2020-08-20 10:57 | Emergency (ER) | payer OTHER, MEDICARE, MEDICAID ==
[~2020-08-20] VITALS: Ht 170.2 cm; Wt 63.5 kg
[~2020-08-20 10:57] MED LIST changes: +PRD20T PO
--- NOTE | 2020-08-20 11:22 | ED GI ---
General Chief Complaint: Abdominal/GI Problems Stated Complaint: NAUSEA; DIARRHEA History of Present Illness Date Seen by Provider: August 20, 2020 Time Seen by Provider: 11:22 Initial Comments 55-year-old female brought in by [facility] staff. Patient was incarcerated yesterday. Patient was brought in per [facility] because of history of low potassium and a "cardiac blockage" patient complains that her "neuropathy is killing her" patient is very vague in her symptoms. Reports that she "has not felt good for 3 weeks. She has had multiple physician encounters with ER visit, urgent care and primary care providers. Patient has no acute complaints but a multitude of longstanding complaint Allergies and Home Medications Allergies Coded Allergies: ciprofloxacin (Unverified Adverse Reaction, Mild, rash, 04/28/19) tetracycline (Unverified Adverse Reaction, Mild, hives, 07/26/18) Uncoded Allergies: PENICILLIN (Adverse Reaction, Severe, Convulsions, 07/26/18) ERYTHROMYCIN (Adverse Reaction, Mild, hives, 07/26/18) Home Medications Albuterol Sulfate 1 Puff Puff, 2 PUFF IH Q4H PRN for cough 1 PUFF = 90 MCG Prescribed by: DAMIR MOSS on 04/28/19 1014 Ciprofloxacin HCl 500 Mg Tablet, 500 MG PO BID Prescribed by: RAYSA BANSAL on 08/20/20 1352 Metronidazole 500 Mg Tablet, 500 MG PO BID Prescribed by: RAYSA BANSAL on 08/20/20 1352 Ondansetron 4 Mg Tab.rapdis, 4 MG PO Q6H PRN for NAUSEA/VOMITING Prescribed by: RAYSA BANSAL on 08/20/20 1352 Prednisone 50 Mg Tab, 50 MG PO DAILY Prescribed by: DAMIR MOSS on 04/28/19 1014 Prednisone 20 Mg Tab, 20 MG PO DAILY Take 3 tabs(60mg)daily x 3 days,decrease by 1/2 tab(10mg)every other day. Prescribed by: JESSENIA TSE on 08/05/20 1357 Patient Home Medication List Home Medication List Reviewed: Yes Review of Systems Review of Systems Constitutional: No chills, No fever; malaise Respiratory: Denies Cough, Denies Shortness of Air Cardiovascular: Denies Chest Pain, Denies Irregular Heart Rate Gastrointestinal: See HPI Genitourinary: See HPI Musculoskeletal: see HPI Psychiatric/Neurological: See HPI Past Vpkzspc-Qrnxtt-Amyfym Hx Past Med/Social Hx: Reviewed Nursing Past Med/Soc Hx Patient Social History Drug of Choice: Methamphetamines Type Used: Cigars, Cigarettes 2nd Hand Smoke Exposure: Yes Recent Hopitalizations: No Immunizations Up To Date Tetanus Booster (TDap): Unknown Seasonal Allergies Seasonal Allergies: No Past Medical History Surgeries: Yes (Bladder suspension) Appendectomy, Gallbladder Respiratory: Yes COPD Cardiac: Yes ([place] 01/2011) Heart Attack Neurological: Yes Neuropathy Genitourinary: No Gastrointestinal: Yes (Hep C) Hepatitis Musculoskeletal: Yes (chronic R hip pain) Endocrine: Yes (DM Type II) Diabetes, Insulin dep HEENT: No Cancer: No Psychosocial: Yes (Hx paranoid schizophrenia) Sleep Difficulties, Anxiety, PTSD, Schizophrenia, Depression Integumentary: No Blood Disorders: Yes (Polycythemia r/t smoking) Physical Exam Vital Signs Vital Signs - First Documented 08/20/20 11:12 Temp 36.1 Pulse 87 Resp 18 B/P (MAP) 121/83 (96) Pulse Ox 96 O2 Delivery Room Air Capillary Refill : Height/Weight/BMI Height: 5'7.00" Weight: 128lbs. oz. 58.157577fe; 21.00 BMI Method:Stated General Appearance: no apparent distress, other (Incarcerated, and handcuffed) HEENT: normal ENT inspection Neck: non-tender, full range of motion, supple Respiratory: lungs clear, normal breath sounds Cardiovascular: normal peripheral pulses, regular rate, rhythm Gastrointestinal: non tender, soft Extremities: normal range of motion, normal capillary refill Back: normal inspection Neurologic/Psychiatric: alert, normal mood/affect, oriented x 3 Skin: normal color, warm/dry Progress/Results/Core Measures Results/Orders Lab Results Laboratory Tests Test 08/20/20 11:50 Range/Units White Blood Count 17.4 H 4.3-11.0 10^3/uL Red Blood Count 5.42 4.35-5.85 10^6/uL Hemoglobin 16.9 H 11.5-16.0 G/DL Hematocrit 50 35-52 % Mean Corpuscular Volume 92 80-99 FL Mean Corpuscular Hemoglobin 31 25-34 PG Mean Corpuscular Hemoglobin Concent 34 32-36 G/DL Red Cell Distribution Width 12.8 10.0-14.5 % Platelet Count 287 130-400 10^3/uL Mean Platelet Volume 10.6 H 7.4-10.4 FL Immature Granulocyte % (Auto) 1 % Neutrophils (%) (Auto) 89 H 42-75 % Lymphocytes (%) (Auto) 5 L 12-44 % Monocytes (%) (Auto) 5 0-12 % Eosinophils (%) (Auto) 1 0-10 % Basophils (%) (Auto) 0 0-10 % Neutrophils # (Auto) 15.5 H 1.8-7.8 X 10^3 Lymphocytes # (Auto) 0.8 L 1.0-4.0 X 10^3 Monocytes # (Auto) 0.8 0.0-1.0 X 10^3 Eosinophils # (Auto) 0.1 0.0-0.3 10^3/uL Basophils # (Auto) 0.0 0.0-0.1 10^3/uL Immature Granulocyte # (Auto) 0.2 H 0.0-0.1 10^3/uL Neutrophils % (Manual) 80 % Lymphocytes % (Manual) 5 % Monocytes % (Manual) 6 % Eosinophils % (Manual) 3 % Basophils % (Manual) 0 % Band Neutrophils 6 % Sodium Level 139 135-145 MMOL/L Potassium Level 4.3 3.6-5.0 MMOL/L Chloride Level 106 98-107 MMOL/L Carbon Dioxide Level 23 21-32 MMOL/L Anion Gap 10 5-14 MMOL/L Blood Urea Nitrogen 22 H 7-18 MG/DL Creatinine 0.72 0.60-1.30 MG/DL Estimat Glomerular Filtration Rate > 60 BUN/Creatinine Ratio 31 Glucose Level 113 H 70-105 MG/DL Calcium Level 9.5 8.5-10.1 MG/DL Corrected Calcium 9.3 8.5-10.1 MG/DL Magnesium Level 2.1 1.6-2.4 MG/DL Total Bilirubin 1.3 H 0.1-1.0 MG/DL Aspartate Amino Transf (AST/SGOT) 14 5-34 U/L Alanine Aminotransferase (ALT/SGPT) 12 0-55 U/L Alkaline Phosphatase 99 40-136 U/L Troponin I < 0.30 <0.30 NG/ML Total Protein 7.0 6.4-8.2 GM/DL Albumin 4.2 3.2-4.5 GM/DL Lipase 14 8-78 U/L My Orders Orders - BANSALNORMAR L DO Ekg Tracing (08/20/20 11:26) Cbc With Automated Diff (08/20/20 11:26) Comprehensive Metabolic Panel (08/20/20 11:26) Lipase (08/20/20 11:26) Magnesium (08/20/20 11:26) Ua Culture If Indicated (08/20/20 11:26) Troponin I Fs (08/20/20 11:26) Manual Differential (08/20/20 11:50) Vital Signs/I&O 08/20/20 11:12 Temp 36.1 Pulse 87 Resp 18 B/P (MAP) 121/83 (96) Pulse Ox 96 O2 Delivery Room Air Progress Progress Note : Time: 13:46 Progress Note Patient had multiple loose stools while here consistent with gastroenteritis. I will treat her with Cipro and Flagyl. Patient did not provide us with a urine sample. Patient stable and will be discharged back to the snf in custody of the law force. Initial ECG Impression Date: August 20, 2020 Initial ECG Impression Time: 11:54 Initial ECG Rate: 82 Initial ECG Rhythm: Normal Sinus Initial ECG Intervals: Normal Initial ECG Impression: Normal Departure Impression Primary Impression: Infectious gastroenteritis and colitis, unspecified Disposition: 01 HOME, SELF-CARE Condition: Stable Departure-Patient Inst. Referrals: ROSALIA MULLEN APRN (PCP) Primary Care Physician [facility] (Family) Primary Care Physician Patient Instructions: Colitis (DC), Diarrhea, Adult ED Add. Discharge Instructions: Follow-up with your primary care provider in 7 days if symptoms have not improved or resolved All discharge instructions reviewed with patient and/or family. Voiced understanding. Scripts Ondansetron (Ondansetron Odt) 4 Mg Tab.rapdis 4 MG PO Q6H PRN for NAUSEA/VOMITING, #20 TAB 0 Refills Prov: BANSAL,RAYSA L DO 08/20/20 Metronidazole (Metronidazole) 500 Mg Tablet 500 MG PO BID, #14 TAB 0 Refills Prov: BANSAL,RAYSA L DO 08/20/20 Ciprofloxacin HCl (Ciprofloxacin HCl) 500 Mg Tablet 500 MG PO BID, #14 TAB Prov: BANSAL,RAYSA L DO 08/20/20 BANSAL,RAYSA L DO August 20, 2020 11:22
[2020-08-20 11:59] LABS: HEMATOCRIT 50 % (35-52); HEMOGLOBIN 16.9 G/DL (11.5-16.0); MEAN CORPUSCULAR HEMOGLOBIN 31 PG (25-34); MEAN CORPUSCULAR HGB CONC 34 G/DL (32-36); MEAN CORPUSCULAR VOLUME 92 FL (80-99); MEAN PLATELET VOLUME 10.6 FL (7.4-10.4); PLATELET COUNT 287 10^3/uL (130-400); WHITE BLOOD COUNT 17.4 10^3/uL (4.3-11.0)
[2020-08-20 12:00] LABS: BASOPHILS % (AUTO) 0 % (0-10); EOSINOPHILS # (AUTO) 0.1 10^3/uL (0.0-0.3); EOSINOPHILS % (AUTO) 1 % (0-10); LYMPHOCYTES # (AUTO) 0.8 X 10^3 (1.0-4.0); LYMPHOCYTES % (AUTO) 5 % (12-44); MONOCYTES # (AUTO) 0.8 X 10^3 (0.0-1.0); MONOCYTES % (AUTO) 5 % (0-12); NEUTROPHILS # (AUTO) 15.5 X 10^3 (1.8-7.8); NEUTROPHILS % (AUTO) 89 % (42-75)
[2020-08-20 12:15] LABS: BAND NEUTROPHILS 6 %; BASOPHILS % (MANUAL) 0 %; EOSINOPHILS % (MANUAL) 3 %; LYMPHOCYTES % (MANUAL) 5 %; MONOCYTES % (MANUAL) 6 %; NEUTROPHILS % (MANUAL) 80 %
[2020-08-20 12:25] LABS: ALANINE AMINOTRANSFERASE 12 U/L (0-55); ALKALINE PHOSPHATASE 99 U/L (40-136); BILIRUBIN,TOTAL 1.3 MG/DL (0.1-1.0); BUN/CREATININE RATIO 31; CALCIUM 9.5 MG/DL (8.5-10.1); CARBON DIOXIDE 23 MMOL/L (21-32); CHLORIDE 106 MMOL/L (98-107); CREATININE SERUM 0.72 MG/DL (0.60-1.30); GFR ESTIMATED > 60; GLUCOSE 113 MG/DL (70-105); MAGNESIUM 2.1 MG/DL (1.6-2.4); POTASSIUM 4.3 MMOL/L (3.6-5.0); SODIUM 139 MMOL/L (135-145)
[2020-08-20 12:26] LABS: ALBUMIN 4.2 GM/DL (3.2-4.5); LIPASE 14 U/L (8-78)
[2020-08-20] MEDS ORDERED: CIPR500T5 PO (13:52)
[2020-08-20] MEDS ORDERED: ONDA4TAB11 PO (13:52)
[2020-08-20] MEDS ORDERED: METR-145 PO (13:52)
[2020-08-20 14:02] VITALS: BP 122/71
== END 2020-08-20 14:06 | disposition home or self-care (01) ==
LOC: EDUNIT# 10:57 → ER FS 10:59
DX: A09 Infectious gastroenteritis and colitis, unspecified (principal); J44.9 Chronic obstructive pulmonary disease, unspecified; I25.2 Old myocardial infarction; E11.9 Type 2 diabetes mellitus without complications; Z77.22 Contact with and (suspected) exposure to environmental tobacco smoke (acute) (chronic); Z88.0 Allergy status to penicillin; Z88.1 Allergy status to other antibiotic agents; Z79.52 Long term (current) use of systemic steroids
CPT/HCPCS: 36415; 80053; 83690; 83735; 84484; 85007; 85027; 93005

== ENCOUNTER 2021-08-05 08:18 | Emergency (ER) | payer MEDICARE, MEDICAID ==
[~2021-08-05] VITALS: Ht 170 cm; Wt 68.0 kg
[~2021-08-05 08:18] MED LIST changes: +CIPR500T5 PO; +METR-145 PO; +ONDA4TAB11 PO; -QUET25TA34; +QUET25TA35; -SULF1TAB35 PO; +SULF1TAB38 PO
[2021-08-05] MEDS ORDERED: CYCLOBENZAPRINE 10 MG (FLEXERIL) TAB PO STA (08:34)
[2021-08-05] MEDS ORDERED: ONDANSETRON 4 MG (ZOFRAN) ORAL DISSOLVE TAB PO STA (08:37)
--- NOTE | 2021-08-05 08:37 | ED Fall/Injury ---
General Chief Complaint: General Problems/Pain Stated Complaint: NAUSEA; ABD BLOATING; LEFT RIB INJ Nursing Triage Note: PT REPORTS SHE FELL ONTO A BOX FAN 2 DAYS AGO AND HAS HAD LEFT POSTERIOR RIB PAIN. PT REPORTS SOME ABDOMINAL BLOATING AND NAUSEA. Source: patient Exam Limitations: no limitations History of Present Illness Date Seen by Provider: Aug 05, 2021 Time Seen by Provider: 08:21 Initial Comments 56-year-old female with past medical history of insulin-dependent diabetes, hypertension, mental health issues, polysubstance abuse coming in 2 days after mechanical fall hitting her left side on a box fan. Had immediate pain but it was not terrible. Did not pass out and remembers all events. Has been ambulatory since then. Has not had anything for pain as of yet. The only thing she has had today is coffee. She is mostly having left-sided rib pain with some mild nausea. The pain is constant, sharp, worse with a deep breath, better with rest. Allergies and Home Medications Allergies Coded Allergies: ciprofloxacin (Unverified Adverse Reaction, Mild, rash, 04/28/19) tetracycline (Unverified Adverse Reaction, Mild, hives, 07/26/18) Uncoded Allergies: PENICILLIN (Adverse Reaction, Severe, Convulsions, 07/26/18) ERYTHROMYCIN (Adverse Reaction, Mild, hives, 07/26/18) Patient Home Medication List Home Medication List Reviewed: Yes Albuterol Sulfate (Proair Hfa) 1 Puff Puff, 2 PUFF IH Q4H PRN for cough Prescribed by: DAMIR MOSS on 04/28/19 1014 Benztropine Mesylate (Benztropine Mesylate) 1 Mg Tablet, (Reported) Entered as Reported by: CATRINA TALBERT on 04/28/19 1007 Ciprofloxacin HCl (Ciprofloxacin HCl) 500 Mg Tablet, 500 MG PO BID Prescribed by: RAYSA BANSAL on 08/20/20 1352 Clonidine HCl (Clonidine HCl) 0.1 Mg Tablet, (Reported) Entered as Reported by: CATRINA TALBERT on 04/28/19 1007 Duloxetine HCl (Duloxetine HCl) 60 Mg Capsule.dr (Reported) Entered as Reported by: CATRINA TALBERT on 04/28/19 1007 Metronidazole (Metronidazole) 500 Mg Tablet, 500 MG PO BID Prescribed by: RAYSA BANSAL on 08/20/20 1352 Ondansetron (Ondansetron Odt) 4 Mg Tab.rapdis, 4 MG PO Q6H PRN for NAUSEA/VOMITING Prescribed by: RAYSA BANSAL on 08/20/20 1352 Prednisone (Prednisone) 50 Mg Tab, 50 MG PO DAILY Prescribed by: DAMIR MOSS on 04/28/19 1014 Prednisone (Prednisone) 20 Mg Tab, 20 MG PO DAILY Prescribed by: JESSENIA TSE on 08/05/20 1357 Quetiapine Fumarate (Quetiapine Fumarate) 25 Mg Tablet, (Reported) Entered as Reported by: CATRINA TALBERT on 04/28/19 1007 [Humalog] , (Reported) Entered as Reported by: CATRINA TALBERT on 07/26/18 0948 [Levemir] , (Reported) Entered as Reported by: CATRINA TALBERT on 07/26/18 0948 [Rexulti] , (Reported) Entered as Reported by: CATRINA TALBERT on 07/26/1848 Review of Systems Review of Systems Constitutional: No chills, No fever Eyes: Denies Blurred Vision Ears, Nose, Mouth, Throat: no symptoms reported Respiratory: no symptoms reported Cardiovascular: no symptoms reported Gastrointestinal: no symptoms reported Genitourinary: no symptoms reported Musculoskeletal: other (left sided chest wall pain) Skin: no symptoms reported Psychiatric/Neurological: No Symptoms Reported All Other Systems Reviewed Negative Unless Noted: Yes Past Kyrellq-Byxcqm-Qxyicp Hx Patient Social History Tobacco Use?: Yes Tobacco type used: Cigarettes Use of E-Cig and/or Vaping dev: No Substance use?: No Alcohol Use?: No Pt feels they are or have been: No Immunizations Up To Date Tetanus Booster (TDap): Unknown Seasonal Allergies Seasonal Allergies: No Past Medical History Surgeries: Yes (Bladder suspension) Appendectomy, Gallbladder Respiratory: Yes COPD Cardiac: Yes ([place] 01/2011) Heart Attack Neurological: Yes Neuropathy Genitourinary: No Gastrointestinal: Yes (Hep C) Hepatitis Musculoskeletal: Yes (chronic R hip pain) Endocrine: Yes (DM Type II) Diabetes, Insulin dep HEENT: No Cancer: No Psychosocial: Yes (Hx paranoid schizophrenia) Sleep Difficulties, Anxiety, PTSD, Schizophrenia, Depression Integumentary: No Blood Disorders: Yes (Polycythemia r/t smoking) Physical Exam Vital Signs Vital Signs - First Documented 08/05/21 08:24 Temp 36.6 Pulse 73 Resp 18 B/P (MAP) 158/100 (119) Pulse Ox 97 O2 Delivery Room Air Capillary Refill : Less Than 3 Seconds Height, Weight, BMI Height: 5'7.00" Weight: 128lbs. oz. 58.498443nz; 23.00 BMI Method:Stated General Appearance: WD/WN, no apparent distress HEENT: PERRL/EOMI, normal ENT inspection, pharynx normal Neck: non-tender, full range of motion, supple, normal inspection Cardiovascular: regular rate, rhythm, no edema, no murmur, other (left sided chest wall pain to palpation, no bruising or swellng) Respiratory: chest non-tender, lungs clear, normal breath sounds, no respiratory distress, no accessory muscle use Gastrointestinal: normal bowel sounds, non tender, soft; No distended, No guarding, No rebound Back: normal inspection, no CVA tenderness, no vertebral tenderness Extremities: normal range of motion, non-tender, normal inspection, no pedal edema, no calf tenderness, normal capillary refill Neurologic/Psychiatric: no motor/sensory deficits, alert, normal mood/affect, oriented x 3 Skin: normal color, warm/dry Lymphatic: no adenopathy Girard Coma Score Best Eye Response: (4) Open Spontaneously Best Verbal Response: (5) Oriented Best Motor Response: (6) Obeys Commands Progress/Results/Core Measures Results/Orders Lab Results Laboratory Tests Test 08/05/21 08:40 Range/Units White Blood Count 7.3 4.3-11.0 10^3/uL Red Blood Count 4.84 3.80-5.11 10^6/uL Hemoglobin 15.1 11.5-16.0 g/dL Hematocrit 44 35-52 % Mean Corpuscular Volume 91 80-99 fL Mean Corpuscular Hemoglobin 31 25-34 pg Mean Corpuscular Hemoglobin Concent 35 32-36 g/dL Red Cell Distribution Width 12.8 10.0-14.5 % Platelet Count 247 130-400 10^3/uL Mean Platelet Volume 10.3 9.0-12.2 fL Immature Granulocyte % (Auto) 0 % Neutrophils (%) (Auto) 60 42-75 % Lymphocytes (%) (Auto) 28 12-44 % Monocytes (%) (Auto) 10 0-12 % Eosinophils (%) (Auto) 2 0-10 % Basophils (%) (Auto) 0 0-10 % Neutrophils # (Auto) 4.4 1.8-7.8 10^3/uL Lymphocytes # (Auto) 2.0 1.0-4.0 10^3/uL Monocytes # (Auto) 0.7 0.0-1.0 10^3/uL Eosinophils # (Auto) 0.1 0.0-0.3 10^3/uL Basophils # (Auto) 0.0 0.0-0.1 10^3/uL Immature Granulocyte # (Auto) 0.0 0.0-0.1 10^3/uL Prothrombin Time 13.0 12.2-14.7 SEC INR Comment 0.9 0.8-1.4 My Orders Orders - SONIA ARRINGTON MD Cbc With Automated Diff (08/05/21 08:34) Comprehensive Metabolic Panel (08/05/21 08:34) Protime With Inr (08/05/21 08:34) Chest Pa/Lat (2 View) (08/05/21 08:34) Ibuprofen Tablet (Motrin Tablet) (08/05/21 08:45) Acetaminophen Tablet (Tylenol Tablet) (08/05/21 08:45) Cyclobenzaprine Tablet (Flexeril Tablet) (08/05/21 08:34) Ondansetron Oral Dissolve Tab (Zofran (08/05/21 08:37) Medications Given in ED Current Medications Medications Dose Ordered Sig/Daniel Route Start Time Stop Time Status Last Admin Dose Admin Acetaminophen 1,000 mg ONCE ONCE PO 08/05/21 08:45 08/05/21 08:46 DC 08/05/21 08:43 1,000 MG Ibuprofen 600 mg ONCE ONCE PO 08/05/21 08:45 08/05/21 08:46 DC 08/05/21 08:43 600 MG Vital Signs/I&O 08/05/21 08:24 Temp 36.6 Pulse 73 Resp 18 B/P (MAP) 158/100 (119) Pulse Ox 97 O2 Delivery Room Air Blood Pressure Mean: 119 Progress Progress Note : Progress Note 56-year-old female with above history coming in after mechanical fall landing on her left side onto a box fan. ABCs were intact, vital stable, GCS 15 on p resentation. Physical exam with no secondary signs of trauma. She does have some tenderness to palpation in the left chest wall laterally with no bruising or swelling. Lung sounds clear bilaterally. Given the normal vitals and this being 2 days after, I have a very low suspicion for traumatic pneumothorax. If she were to have any internal bleeding at this point I would expect some tachycardia or change in her hemoglobin. We will get a CBC today and compared to her baseline. He has been ambulatory since the incident and I have a low suspicion for cervical spine injury. Denies headache as well and is not on blood thinners. Is overall lower risk for any significant head injury. We will give her Tylenol, ibuprofen, Flexeril for pain. Gave her Zofran for her mild nausea. I was able to to a E-FAST exam with ultrasound which was negative. Specifically no evidence of bleeding in the LUQ and no pneumo/hemothorax. Her hemoglobin is normal. Repeat vitals are reassuring. The patient was then discharged home in stable condition with strict return precautions. I told her to follow-up with her primary if things or not improving in the next several days. Diagnostic Imaging Diagonstic Imaging: Xray (chest) Comments [facility]. [place], [place] NAME: TITA LOPEZ [facility] REC#: [id number] PT STATUS: REG ER : 1965 PHYSICIAN: SONIA ARRINGTON MD ADMIT DATE: 08/05/21/ER FS Draft Date of Exam:08/05/21 CHEST PA/LAT (2 VIEW) EXAMINATION: Chest 2 view HISTORY: Fall. Left rib pain. COMPARISON: 08/05/2020. FINDINGS: The lung volumes are normal. No focal consolidation is seen. No large pleural effusion or pneumothorax is seen. The cardiomediastinal silhouette is normal in size and contour. No acute osseous abnormality is seen. Kyphoplasty changes are seen in the midthoracic spine. IMPRESSION: 1. No acute pleuroparenchymal process. Dictated on workstation # [id number] Dict: 08/05/21 0852 Trans: 08/05/[address] [facility] [id number] Interpreted by: LIANNA,JACKI G DO Electronically signed by: Departure Impression Primary Impression: Fall Qualified Codes: W19.XXXA - Unspecified fall, initial encounter Additional Impression: Rib pain on left side Disposition: 01 HOME, SELF-CARE Condition: Stable Departure-Patient Inst. Decision time for Depature: 09:30 Referrals: ROSALIA MULLEN APRN (PCP) Primary Care Physician [facility] (Family) Primary Care Physician Patient Instructions: RIB CONTUSION Add. Discharge Instructions: Fortunately nothing is broken and it does not appear like you are bleeding or having any significant internal injury. Take ibuprofen and/or Tylenol for pain. You can also try icing it or using heating pad, whichever feels better. You can use the muscle relaxer as needed. Place the lidocaine patch where you hurt the most on the left side. Follow-up with your regular doctor if things are not improving Scripts Ondansetron (Ondansetron Odt) 4 Mg Tab.rapdis 4 MG PO Q6H PRN for NAUSEA/VOMITING-1ST LINE for 5 Days, #20 TAB Prov: SONIA ARRINGTON MD 08/05/21 Lidocaine (Lidocaine 5% Patch) 5 % Adh..patch 1 EACH TP Q12H PRN for Neuropathic pain MDD 2 for 7 Days, #14 PATCH 2 patches max for 12 hours, then 12 hours patch-free period. Prov: SONIA ARRINGTON MD 08/05/21 Cyclobenzaprine HCl (Cyclobenzaprine HCl) 10 Mg Tablet 10 MG PO Q8H PRN for SPASMS for 5 Days, #15 TAB 0 Refills Prov: SONIA ARRINGTON MD 08/05/21 Work/School Note: Work Release Form Date Seen in the Emergency Department: Aug 05, 2021 Return to Work: Aug 06, 2021 Restrictions: No Restrictions SONIA ARRINGTON MD Aug 05, 2021 08:37
[2021-08-05] MEDS ORDERED: ACETAMINOPHEN 500 MG TAB (TYLENOL) PO ONE (08:45)
[2021-08-05] MEDS ORDERED: IBUPROFEN 600 MG (MOTRIN) TAB PO ONE (08:45)
[2021-08-05 08:48] LABS: BASOPHILS % (AUTO) 0 % (0-10); EOSINOPHILS # (AUTO) 0.1 10^3/uL (0.0-0.3); EOSINOPHILS % (AUTO) 2 % (0-10); HEMATOCRIT 44 % (35-52); HEMOGLOBIN 15.1 g/dL (11.5-16.0); LYMPHOCYTES % (AUTO) 28 % (12-44); MEAN CORPUSCULAR HEMOGLOBIN 31 pg (25-34); MEAN CORPUSCULAR HGB CONC 35 g/dL (32-36); MEAN CORPUSCULAR VOLUME 91 fL (80-99); MEAN PLATELET VOLUME 10.3 fL (9.0-12.2); MONOCYTES # (AUTO) 0.7 10^3/uL (0.0-1.0); MONOCYTES % (AUTO) 10 % (0-12); NEUTROPHILS # (AUTO) 4.4 10^3/uL (1.8-7.8); NEUTROPHILS % (AUTO) 60 % (42-75); PLATELET COUNT 247 10^3/uL (130-400); WHITE BLOOD COUNT 7.3 10^3/uL (4.3-11.0)
--- NOTE | 2021-08-05 08:53 | Diagnostic Imaging Report ---
EXAMINATION: Chest 2 view HISTORY: Fall. Left rib pain. COMPARISON: 08/05/2020. FINDINGS: The lung volumes are normal. No focal consolidation is seen. No large pleural effusion or pneumothorax is seen. The cardiomediastinal silhouette is normal in size and contour. No acute osseous abnormality is seen. Kyphoplasty changes are seen in the midthoracic spine. IMPRESSION: 1. No acute pleuroparenchymal process. Dictated by: Dictated on workstation # [id number]
[2021-08-05 08:59] LABS: INR 0.9 (0.8-1.4)
[2021-08-05 09:11] LABS: POTASSIUM 4.3 MMOL/L (3.6-5.0)
[2021-08-05 09:12] LABS: ALBUMIN 4.1 GM/DL (3.2-4.5); CALCIUM 9.2 MG/DL (8.5-10.1); CREATININE SERUM 0.59 MG/DL (0.60-1.30); TOTAL PROTEIN 6.8 GM/DL (6.4-8.2)
[2021-08-05] MEDS ORDERED: CYCL10TA25 PO (09:13)
[2021-08-05] MEDS ORDERED: ONDA4TAB11 PO (09:13)
[2021-08-05] MEDS ORDERED: LIDO700A45 TP (09:13)
[2021-08-05 09:16] VITALS: BP 158/100
== END 2021-08-05 09:18 | disposition home or self-care (01) ==
LOC: EDUNIT# 08:18 → ER FS 08:21
DX: R07.81 Pleurodynia (principal); E11.9 Type 2 diabetes mellitus without complications; Z72.0 Tobacco use; Z79.4 Long term (current) use of insulin
CPT/HCPCS: 36415; 71046; 80053; 85025; 85610

== ENCOUNTER 2021-08-23 13:47 | Emergency (ER) | payer MEDICARE, MEDICAID ==
[~2021-08-23] VITALS: Ht 170.2 cm; Wt 66.7 kg
[~2021-08-23 13:47] MED LIST changes: +CYCL10TA25 PO; +LIDO700A45 TP
[2021-08-23 13:51] VITALS: BP 174/76
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
[2021-08-23] MEDS ORDERED: IBUPROFEN 600 MG (MOTRIN) TAB PO ONE (14:00)
--- NOTE | 2021-08-23 14:14 | Diagnostic Imaging Report ---
INDICATION: Knee injury. Knee pain. FINDINGS: There is a right suprapatellar knee joint effusion. Knee alignment is normal. There are no findings of an acute fracture. There is mild osteoarthritic joint space narrowing demonstrated of the medial and patellofemoral compartments. There is no focal soft tissue abnormality or retained foreign body. IMPRESSION: Mild medial compartment and patellofemoral compartment joint space narrowing. There is a small knee joint effusion. Alignment is normal. There are no findings of a fracture. Dictated by: Dictated on workstation # [id number]
== END 2021-08-23 14:13 | disposition home or self-care (01) ==
LOC: EDUNIT# 13:47 → ER FS 13:48
DX: S83.411A Sprain of medial collateral ligament of right knee, initial encounter (principal); E11.40 Type 2 diabetes mellitus with diabetic neuropathy, unspecified; Z79.4 Long term (current) use of insulin; Y04.8XXA Assault by other bodily force, initial encounter
CPT/HCPCS: 73562

== ENCOUNTER 2022-06-23 10:16 | Emergency (ER) | payer MEDICARE, MEDICAID ==
[~2022-06-23] VITALS: Ht 170.2 cm; Wt 66.7 kg
[~2022-06-23 10:16] MED LIST changes: +ALBU8.5H6 IH; -BENZ1TAB6; +BENZ1TAB74; -RT-ALBUINH IH
[2022-06-23 10:20] VITALS: BP 150/102
[2022-06-23] MEDS ORDERED: ONDANSETRON 4 MG (ZOFRAN) ORAL DISSOLVE TAB PO STA (10:27)
[2022-06-23] MEDS ORDERED: KETOROLAC 60 MG/2 ML VIAL IM STA (10:27)
--- NOTE | 2022-06-23 10:40 | ED Upper Extremity ---
General Chief Complaint: Upper Extremity Stated Complaint: LT WRIST CYST; NAUSEA; BEACH Source: patient History of Present Illness Date Seen by Provider: Jun 23, 2022 Time Seen by Provider: 10:19 Initial Comments 57-year-old female presenting with complaints of 2 weeks of swelling to her left wrist. She noticed a bump on the wrist just below the base of her thumb about 2 weeks ago. She denies any trauma or acute injury to cause this swelling. She made an appointment with the [facility] but they cannot see her until July. 2 days ago the area started hurting and she is having trouble using her left hand. She feels like the back of her hand is going numb at times. She had tried some ibuprofen 2 days ago but felt it was not helping with her pain so has not taken anymore since then. She also started having a headache with nausea 2 days ago when the pain started getting worse. She was concerned that it might be a cyst or something more and since she could not get into [facility] for another month she came to the ED. Severity: moderate Pain/Injury Location: left wrist Method of Injury: unknown Modifying Factors: Worse With Movement Allergies and Home Medications Allergies Coded Allergies: ciprofloxacin (Unverified Adverse Reaction, Mild, rash, 04/28/19) tetracycline (Unverified Adverse Reaction, Mild, hives, 07/26/18) Uncoded Allergies: PENICILLIN (Adverse Reaction, Severe, Convulsions, 07/26/18) ERYTHROMYCIN (Adverse Reaction, Mild, hives, 07/26/18) Patient Home Medication List Home Medication List Reviewed: Yes Albuterol Sulfate (Ventolin Hfa) 1 Puff Puff, 2 PUFF IH Q4H PRN for cough Prescribed by: DAMIR MOSS on 04/28/19 1014 Benztropine Mesylate (Benztropine Mesylate) 1 Mg Tablet, (Reported) Entered as Reported by: CATRINA TALBERT on 04/28/19 1007 Ciprofloxacin HCl (Ciprofloxacin HCl) 500 Mg Tablet, 500 MG PO BID Prescribed by: RAYSA BANSAL on 08/20/20 1352 Clonidine HCl (Clonidine HCl) 0.1 Mg Tablet, (Reported) Entered as Reported by: CATRINA TALBERT on 04/28/19 1007 Cyclobenzaprine HCl (Cyclobenzaprine HCl) 10 Mg Tablet, 10 MG PO Q8H PRN for SPASMS Prescribed by: SONIA ARRINGTON on 08/05/21 09 Duloxetine HCl (Duloxetine HCl) 60 Mg Capsule., (Reported) Entered as Reported by: CATRINA TALBERT on 04/28/19 1007 Lidocaine (Lidocaine 5% Patch) 5 % Adh..patch, 1 EACH TP Q12H PRN for Neuropathic pain Prescribed by: SONIA ARRINGTON on 08/05/21 09 Metronidazole (Metronidazole) 500 Mg Tablet, 500 MG PO BID Prescribed by: RAYSA BANSAL on 08/20/20 1352 Ondansetron (Ondansetron Odt) 4 Mg Tab.rapdis, 4 MG PO Q6H PRN for NAUSEA/VOMITING Prescribed by: RAYSA BANSAL on 08/20/20 1352 Ondansetron (Ondansetron Odt) 4 Mg Tab.rapdis, 4 MG PO Q6H PRN for NAUSEA/VOMITING-1ST LINE Prescribed by: SONIA ARRINGTON on 08/05/21 09 Prednisone (Prednisone) 50 Mg Tab, 50 MG PO DAILY Prescribed by: DAMIR MOSS on 04/28/19 1014 Prednisone (Prednisone) 20 Mg Tab, 20 MG PO DAILY Prescribed by: JESSENIA TSE on 08/05/20 1357 Quetiapine Fumarate (Quetiapine Fumarate) 25 Mg Tablet, (Reported) Entered as Reported by: CATRINA TALBERT on 04/28/19 1007 [Humalog] , (Reported) Entered as Reported by: CATRINA TALBERT on 07/26/18 0948 [Levemir] , (Reported) Entered as Reported by: CATRINA TALBERT on 07/26/18947 [Rexulti] , (Reported) Entered as Reported by: CATRINA TALBERT on 07/26/18947 Review of Systems Constitutional: No chills, No fever EENTM: no symptoms reported Respiratory: no symptoms reported Cardiovascular: no symptoms reported Gastrointestinal: nausea Genitourinary: no symptoms reported Musculoskeletal: no symptoms reported Skin: no symptoms reported Psychiatric/Neurological: Headache Past Cedffck-[place]-Rjlinr Hx Patient Social History Tobacco Use?: Yes Tobacco type used: Cigarettes Smoking Status: Current Everyday Smoker Use of E-Cig and/or Vaping dev: No Substance use?: No Alcohol Use?: No Pt feels they are or have been: No Immunizations Up To Date Tetanus Booster (TDap): Unknown Seasonal Allergies Seasonal Allergies: No Past Medical History Surgery/Hospitalization HX: Hypertension Surgeries: Yes (Bladder suspension) Appendectomy, Gallbladder Respiratory: Yes COPD Cardiac: Yes ([place] 01/2011) Heart Attack Neurological: Yes Neuropathy Genitourinary: No Gastrointestinal: Yes (Hep C) Hepatitis Musculoskeletal: Yes (chronic R hip pain) Endocrine: Yes (DM Type II) Diabetes, Insulin dep HEENT: No Cancer: No Psychosocial: Yes (Hx paranoid schizophrenia) Sleep Difficulties, Anxiety, PTSD, Schizophrenia, Depression Integumentary: No Blood Disorders: Yes (Polycythemia r/t smoking) Physical Exam Vital Signs Vital Signs - First Documented 06/23/22 10:20 Temp 36.2 Pulse 72 Resp 18 B/P (MAP) 150/102 (118) Pulse Ox 100 O2 Delivery Room Air Capillary Refill : Height, Weight, BMI Height: 5'7.00" Weight: 128lbs. oz. 58.784517sx; 23.00 BMI Method:Stated General Appearance: WD/WN, no apparent distress HEENT: PERRL/EOMI Neck: non-tender, full range of motion, supple, normal inspection Cardiovascular: normal peripheral pulses, regular rate, rhythm Respiratory: chest non-tender, lungs clear, normal breath sounds Shoulder: normal inspection, non-tender, no evidence of injury, normal ROM Elbow/Forearm: normal inspection, non-tender, no evidence of injury, normal ROM Wrist: Yes normal ROM (but has tenderness to left wrist movement and palpation), Yes pain, Yes soft tissue tenderness (over left wrist where has swollen nodule at base of thumb), Yes swelling (left wrist) Neurologic/Tendon: normal sensation, normal motor functions, normal tendon fun ctions 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 Order Toradol 60 mg IM for pain and inflammation, xrays of left wrist. Before the patient could get her injection or xrays performed to look at the wrist she took a phone call and then walked out talking on the phone and did not speak to staff about why she was leaving. She did not come back and was not answering her cell phone when attempted to call patient. Departure Impression Primary Impression: Pain and swelling of left wrist Additional Impressions: Hypertension Qualified Codes: I10 - Essential (primary) hypertension Left against medical advice Disposition: 07 AGAINST MEDICAL ADVICE Condition: Against Medical Advice Departure-Patient Inst. Referrals: ROSALIA MULLEN APRN (PCP) Primary Care Physician [facility] [place] ([place]) Primary Care Physician JESSENIA TSE MD Jun 23, 2022 10:40
== END 2022-06-23 10:35 | disposition left against medical advice (07) ==
LOC: EDUNIT# 10:16 → ER FS 10:17
DX: M25.532 Pain in left wrist (principal); I10 Essential (primary) hypertension; F17.210 Nicotine dependence, cigarettes, uncomplicated
CPT/HCPCS: 99281

== ENCOUNTER 2022-08-20 05:37 | Outpatient (CLI) | payer MEDICARE, MEDICAID ==
[~2022-08-20] VITALS: Ht 170.1 cm; Wt 66.9 kg
[~2022-08-20 05:37] MED LIST changes: -Levemir; +Levemir SC; -REXULTI; +REXULTI PO
[2022-08-24] MEDS ORDERED: LISI20TA26 PO (11:01)
[2022-08-24] MEDS ORDERED: TRAZ150T72 PO (11:01)
== END 2022-08-24 12:23 ==
LOC: PREOP 05:37
PROVIDERS: ATTEND Surgery
DX: Z01.818 Encounter for other preprocedural examination (principal); M67.432 Ganglion, left wrist

== ENCOUNTER 2022-08-27 09:07 | Day surgery (SDC) | payer MEDICARE, MEDICAID ==
[2022-08-27] VITALS (8 sets, daily range): BP systolic 152–196; BP diastolic 45–100
[~2022-08-27] VITALS: Ht 170.1 cm; Wt 66.9 kg
[~2022-08-27 09:07] MED LIST changes: +LISI20TA26 PO; +TRAZ150T72 PO
[2022-08-27] MEDS ORDERED: ceFAZolin INJECTION 2,000 MG in NS (IVPB) 50 ML IV ONE (09:45)
[2022-08-27] MEDS ORDERED: LACTATED RINGERS 1,000 ML IV PRN (09:45)
[2022-08-27] MEDS ORDERED: BUP/EPI 0.5% 1:200,000 (SENSORCAINE) 30 ML VIAL ONE (10:41)
--- NOTE | 2022-08-27 10:50 | Progress Note-Pre Operative ---
Pre-Operative Progress Note Date H&P Reviewed: August 27, 2022 Time H&P Reviewed: 10:50 History & Physical: H&P Reviewed, Patient Examed, No changes noted Pre-Operative Diagnosis: left ganglion cyst JANINA SHARP DO August 27, 2022 10:50
[2022-08-27] MEDS ORDERED: MIDAZOLAM 2 MG/2 ML (VERSED) VIAL ONE (11:03)
[2022-08-27] MEDS ORDERED: ONDANSETRON 4 MG/2 ML (SDV) Z0FRAN ONE ×2 (11:03→12:28)
[2022-08-27] MEDS ORDERED: proPOfol 200 MG/20 ML (DIPRIVAN) VIAL IV ONE (11:03)
[2022-08-27] MEDS ORDERED: LIDOCAINE PF 2% 5 ML (XYLOCAINE) VIAL ONE (11:03)
[2022-08-27] MEDS ORDERED: fentaNYL INJ 100 MCG/2 ML AMP ONE (11:03)
[2022-08-27] MEDS ORDERED: SEVOFLURANE (ULTANE) 15 ML INHAL SOLN ONE (12:12)
[2022-08-27] MEDS ORDERED: morphine INJ 10 MG/ML 1ML (SYR OR VIAL) IVP ONE (12:30)
[2022-08-27] MEDS ORDERED: ONDANSETRON 4 MG/2 ML (SDV) Z0FRAN IVP PRN (12:30)
--- NOTE | 2022-08-27 13:05 | Discharge Inst-Simple/Standard ---
Discharge Inst-Standard Patient Instructions/Follow Up Plan of Care/Instructions/FU: two week follow up with [facility] Activity as Tolerated: No Discharge Diet: Regular Diet Other Inst to Patient Follow up Appt: Make appointment for 2 week. Instructions: No lifting greater than 10 pounds. No strenuous activity. May shower in 24 hours, no tub bath or soaking. Use incentive spirometer at home as directed. No Smoking Skin/Wound Care: Keep clean and dry, change bandage daily, do not soak wrist. Symptoms to Report: Appetite Changes, Extremity Discoloration, Numbness/Tingling, Swelling Increased, Bleeding Excessive, Eyesight Changes, Pain Increased, Urine Color Change, Constipation(Persistent), Fever over 101 degree F, Pain/Pressure in chest, Urinating Difficulty, Cough Up/Vomit Blood, Heart Beat Irreg/Pounding, Pain/Pressure in jaw, Vaginal Bleeding Increase, Cramps in feet or legs, Lightheadedness, Pain/Pressure in shoulder, Diarrhea(Persistent), Memory Changes Suddenly, Questions/Concerns, Weight gain consecutive days, Dizziness/Fainting, Nausea/Vomiting, Shortness of Breath, Weight gain over 2 pounds If questions or concerns contact your physician Or seek help at emergency department. JANINA SHARP DO August 27, 2022 13:05
--- NOTE | 2022-08-27 13:34 | Anesthesia-General Post-Op ---
General Patient Condition Mental Status/LOC: Same as Preop Cardiovascular: Satisfactory Nausea/Vomiting: Absent Respiratory: Satisfactory Pain: Controlled Complications: Absent Post Op Complications Complications None Follow Up Care/Instructions Patient Instructions None needed. Anesthesia/Patient Condition Patient Condition Patient is doing well, no complaints, stable vital signs, no apparent adverse anesthesia problems. No complications reported per nursing. SANKET PATINO CRNA August 27, 2022 13:34
--- NOTE | 2022-08-30 12:54 | OPERATIVE REPORT ---
DATE OF SERVICE: 08/27/2022 PREOPERATIVE DIAGNOSIS: Left wrist ganglion cyst. POSTOPERATIVE DIAGNOSIS: Left wrist ganglion cyst. PROCEDURE: Excision of left wrist ganglion cyst. SURGEON: Janina Horne DO ANESTHESIA: General. ESTIMATED BLOOD LOSS: Minimal. COMPLICATIONS: None. INDICATIONS: The patient is a 57-year-old female with a ganglion cyst, left wrist. She understands risks and benefits and wishes to proceed. Consent was signed in chart. DESCRIPTION OF PROCEDURE: The patient was taken to the operating suite. She was prepped and draped in sterile fashion. Timeout was performed. Local anesthetic was infiltrated around the cyst. A 3 cm incision was made over the cyst and cautery and blunt dissection was used to start to dissect around the cyst. Once dissected completely around the ganglion cyst at the base of it, an Endoloop PDS was used to tie it off and the cyst was cut off above it. This was sent off for specimen. The wound was then irrigated. Hemostasis was achieved. The skin was then closed using 3-0 nylon in a simple interrupted fashion. The patient tolerated the procedure well without any complications, taken to recovery room in stable condition. Job ID: [id number] DocumentID: [id number] Dictated Date: 08/30/2022 09:42:57 Singer Back Tender Date: 08/30/2022 12:52:00 Dictated By: JANINA HORNE DO
== END 2022-08-27 14:00 ==
LOC: SDC 09:07
PROVIDERS: ATTEND Surgery
DX: M67.432 Ganglion, left wrist (principal); F17.210 Nicotine dependence, cigarettes, uncomplicated; Z28.310 Unvaccinated for COVID-19
CPT/HCPCS: 82947; 87081; 88304